=== PATIENT | male | born 1975 | race Two or more races ===

== ENCOUNTER → 2020-04-06 12:44 | Outpatient (BNVA) | payer BC, SELFPAY | PROVIDERS: PCP Internal Medicine; Visit Provider Orthopaedic Surgery ==

== ENCOUNTER 2020-04-27 12:14 | Day surgery (SDC) | payer BC, SELFPAY ==
[2020-04-27 13:03] VITALS: BMI 31.8
[2020-04-27 13:04] VITALS: PULSE 89; TEMP 36.8; O2SAT 97
--- NOTE | 2020-04-27 13:59 | W.PM.OPN ---
Operative Note Operative Note Date of Service: 04/27/20 Narrative: Preop diagnosis: 1. Left Carpal tunnel syndrome Postop diagnosis: 1. Left Carpal tunnel syndrome Procedure: 1. Left Carpal tunnel release Surgeon: Jinny Yancey MD Anesthesia: local block using 1% lidocaine with epinephrine Findings: Thickened transverse carpal ligament. EBL: Less than 5 mL Specimens: None Complications: None Disposition: Brought to recovery room in stable condition Plan: Follow-up for 7-10 days for wound check and suture removal Indications: The patient is 45 years old, with left carpal tunnel syndrome that has been unresponsive to nonoperative management. The risks and benefits of operative treatment including but not limited to risk of damage to blood vessels, nerves, tendons, infection, persistent pain, persistent symptoms, or possible need for additional surgery were discussed with the patient and the patient wishes to proceed with surgery. Procedure: Once consent was obtained a local block was performed using a combination of 1% lidocaine with epinephrine. The patient was then brought back to the operating suite and placed on the operative table in supine position. A tourniquet was applied to the proximal aspect of the left upper extremity and the limb was prepped and draped in a standard surgical fashion. Once assured that we had a good block, a 1.5 cm longitudinal incision was made centered over the left carpal tunnel. The incision was made through the skin to the subcutaneous tissues using a #15 blade. Dissection was made down to the level of the transverse carpal ligament with care being taken to protect the palmar cutaneous nerve. Once the transverse carpal ligament was clearly visualized, a longitudinal incision was made in the transverse carpal ligament 1st using a #15 blade, then using tenotomy scissors under direct visualization. Care was taken to look for and protect the motor branch of the median nerve when seen in this area. Once satisfied with our carpal tunnel release the wound was copiously irrigated with normal saline and hemostasis was obtained with a brief period of local pressure. The skin edges were reapproximated with some 5.0 nylon suture material and a sterile dressing was applied. The patient appears to have tolerated the procedure well and with no complications. All digits were well vascularized at the conclusion of the case.
[2020-04-27 14:42] VITALS: BP 130/81; PULSE 69; RESP 16; TEMP 36.6; O2SAT 96
== END 2020-04-27 14:56 | disposition home or self-care (01) ==
PROVIDERS: PCP Internal Medicine; Visit Provider Orthopaedic Surgery
PROC: (CPT 64721; principal; 2020-04-27 13:30)
DX: G56.02 Carpal tunnel syndrome, left upper limb (principal); E66.9 Obesity, unspecified; I49.1 Atrial premature depolarization; Z68.31 Body mass index [BMI] 31.0-31.9, adult; Z91.040 Latex allergy status; Z87.891 Personal history of nicotine dependence
CPT/HCPCS: 64721

== ENCOUNTER → 2020-05-06 09:08 | Outpatient (BNVA) | payer BC, SELFPAY | PROVIDERS: PCP Internal Medicine; Visit Provider Orthopaedic Surgery ==

== ENCOUNTER 2020-05-28 11:11 | Day surgery (SDC) | payer BC, SELFPAY ==
[2020-05-27 09:43] VITALS: BMI 31.8
[2020-05-28 11:36] VITALS: BP 149/84; PULSE 79; RESP 18; TEMP 36.2; O2SAT 98
--- NOTE | 2020-05-28 12:56 | W.PM.OPN ---
Operative Note Operative Note Date of Service: 05/28/20 Narrative: Preop diagnosis: 1. Right Carpal tunnel syndrome Postop diagnosis: 1. Right Carpal tunnel syndrome Procedure: 1. Right Carpal tunnel release Surgeon: Jinny Yancey MD Anesthesia: local block using 1% lidocaine with epinephrine Findings: Thickened transverse carpal ligament. EBL: Less than 5 mL Specimens: None Complications: None Disposition: Brought to recovery room in stable condition Plan: Follow-up for 7-10 days for wound check and suture removal Indications: The patient is 45 years old, with right carpal tunnel syndrome that has been unresponsive to nonoperative management. The risks and benefits of operative treatment including but not limited to risk of damage to blood vessels, nerves, tendons, infection, persistent pain, persistent symptoms, or possible need for additional surgery were discussed with the patient and the patient wishes to proceed with surgery. Procedure: Once consent was obtained a local block was performed using a combination of 1% lidocaine with epinephrine. The patient was then brought back to the operating suite and placed on the operative table in supine position. A tourniquet was applied to the proximal aspect of the right upper extremity and the limb was prepped and draped in a standard surgical fashion. Once assured that we had a good block, a 1.5 cm longitudinal incision was made centered over the right carpal tunnel. The incision was made through the skin to the subcutaneous tissues using a #15 blade. Dissection was made down to the level of the transverse carpal ligament with care being taken to protect the palmar cutaneous nerve. Once the transverse carpal ligament was clearly visualized, a longitudinal incision was made in the transverse carpal ligament 1st using a #15 blade, then using tenotomy scissors under direct visualization. Care was taken to look for and protect the motor branch of the median nerve when seen in this area. Once satisfied with our carpal tunnel release the wound was copiously irrigated with normal saline and hemostasis was obtained with a brief period of local pressure. The skin edges were reapproximated with some 5.0 nylon suture material and a sterile dressing was applied. The patient appears to have tolerated the procedure well and with no complications. All digits were well vascularized at the conclusion of the case.
--- NOTE | 2020-05-28 14:16 | MHC.SHP ---
Pre-Procedural Eval Section B Chief Complaint: carpal tunnel Allergies: Allergies Allergy/AdvReac Type Severity Reaction Status Date / Time latex [LATEX] Allergy Unknown RASH Verified 05/06/20 09:28 Plan I have reviewed the history and physical and performed a pertinent physical examination on my patient. No changes have occurred unless specified.
[2020-05-28 14:39] VITALS: BP 122/77; PULSE 73; RESP 17; TEMP 36.2; O2SAT 98
== END 2020-05-28 14:50 ==
LOC: HO.SSS 11:12
PROVIDERS: PCP Internal Medicine; Visit Provider Orthopaedic Surgery
PROC: (CPT 64721; principal; 2020-05-28 12:50)
DX: G56.01 Carpal tunnel syndrome, right upper limb (principal); E66.9 Obesity, unspecified; Z68.31 Body mass index [BMI] 31.0-31.9, adult; Z91.040 Latex allergy status; Z87.891 Personal history of nicotine dependence
CPT/HCPCS: 64721

== ENCOUNTER → 2020-06-08 10:09 | Outpatient (BNVA) | payer BC, SELFPAY | PROVIDERS: PCP Internal Medicine; Visit Provider Orthopaedic Surgery ==

== ENCOUNTER → 2020-06-15 08:46 | Outpatient (BNVA) | payer BC, SELFPAY | PROVIDERS: PCP Internal Medicine; Visit Provider Orthopaedic Surgery ==

== ENCOUNTER 2021-06-24 06:48 | Outpatient (REF) | payer BC, SELFPAY ==
[2021-06-24 07:05] LABS: MANUAL DIFF FLAG NO
[2021-06-24 07:40] LABS: Basophils Absolute Auto 0.1 X10*3/uL (0.0-0.2); Basophils Percent Auto 1.1 % (0-2); Eosinophils Absolute Auto 0.3 X10*3/uL (0.0-0.4); Eosinophils Percent Auto 4.2 % (0-4); Hematocrit 42.4 % (42.0-52.0); Hemoglobin 14.1 g/dl (14.0-18.0); Imm Gran Abs Auto 0.03 X10*3/uL (0.00-0.03); Imm Gran Pct Auto 0.5 % (0.0-0.4); Lymphocytes Absolute Auto 1.8 X10*3/uL (1.2-4.9); Lymphocytes Percent Auto 29.2 % (20-40); Mean Corpuscular HGB Conc 33.3 g/dl (31.0-36.0); Mean Corpuscular Hemoglobin 29.1 pg (27.0-33.0); Mean Corpuscular Volume 87.4 fL (80.0-98.0); Mean Platelet Volume 10.6 fL (9.4-12.4); Monocytes Absolute Auto 0.4 X10*3/uL (0.1-1.2); Neutrophils Absolute Auto 3.6 x10*3/uL (2.0-8.3); Platelet Count 248 X10*3/uL (160-400); Red Blood Count 4.85 X10*6/uL (4.60-5.80); Red Cell Distribution Width 12.8 % (11.0-16.0); White Blood Count 6.2 X10*3/uL (4.8-10.8)
[2021-06-24 07:49] LABS: Appearance Urine CLEAR; Color Urine YELLOW; Glucose Urine UA NEG (NEG); Leukocyte Esterase Urine NEG (NEG); Nitrite Urine NEG (NEG); Specific Gravity - Urine 1.025 (1.005-1.025); Urine Blood NEG (NEG); Urine Ketones NEG (NEG); Urine Protein NEG (NEG-TRACE)
[2021-06-24 07:58] LABS: Troponin-I High Sensitivity < 3.5 ng/L (<3.5-35.0)
[2021-06-24 08:03] LABS: Alanine Aminotransferase 39 U/L (0-40); Albumin Level 4.4 g/dL (3.5-5.0); Alkaline Phosphatase 62 U/L (39-117); Anion Gap 10 (12-20); Aspartate Amino Transferase 21 U/L (5-37); Bilirubin Total 0.2 mg/dL (0.0-1.0); Blood Urea Nitrogen 9 mg/dL (9-16); Calcium 9.5 mg/dL (8.4-10.2); Carbon Dioxide 29 mmol/L (22-29); Chloride 102 mmol/L (96-108); Cholesterol 219 mg/dL; Estimated Glomerular Filt Rate > 60; Glucose Fasting 92 mg/dL (60-99); HDL Cholesterol 28 mg/dL; LDL Cholesterol Calculated 124 mg/dl; Potassium 4.1 mmol/L (3.3-5.1); Sodium 137 mmol/L (135-145); Total Protein 7.5 g/dL (6.5-8.0); Triglycerides 338 mg/dL
[2021-06-24 08:25] LABS: TSH reflex Free T4 3.16 uIU/mL (0.32-4.0)
[2021-06-24 08:52] LABS: Erythrocyte Sedimentation Rate 10 MM/HR (0-15)
== END 2021-06-24 06:49 | disposition home or self-care (01) ==
LOC: HO.LAB 06:48
PROVIDERS: PCP Internal Medicine; Visit Provider Internal Medicine
DX: Z00.00 Encounter for general adult medical examination without abnormal findings (principal); I10 Essential (primary) hypertension; E78.00 Pure hypercholesterolemia, unspecified; E55.9 Vitamin D deficiency, unspecified; R07.9 Chest pain, unspecified; G43.909 Migraine, unspecified, not intractable, without status migrainosus
CPT/HCPCS: 36415; 80053; 80061; 81003; 82306; 84443; 84484; 85025; 85652

== ENCOUNTER 2022-04-25 06:45 | Outpatient (REF) | payer BC, SELFPAY ==
[2022-04-25 08:23] LABS: Alanine Aminotransferase 56 U/L (0-40); Albumin Level 4.3 g/dL (3.5-5.0); Alkaline Phosphatase 76 U/L (39-117); Anion Gap 13 (12-20); Aspartate Amino Transferase 32 U/L (5-37); Bilirubin Total 0.3 mg/dL (0.0-1.0); Blood Urea Nitrogen 15 mg/dL (9-16); Calcium 9.5 mg/dL (8.4-10.2); Carbon Dioxide 24 mmol/L (22-29); Chloride 106 mmol/L (96-108); Cholesterol 230 mg/dL; Estimated Glomerular Filt Rate > 60; Glucose Fasting 88 mg/dL (60-99); HDL Cholesterol 25 mg/dL; Potassium 4.2 mmol/L (3.3-5.1); Sodium 139 mmol/L (135-145); Total Protein 7.3 g/dL (6.5-8.0); Triglycerides 444 mg/dL
[2022-04-25 08:41] LABS: Vitamin D 25-OH Total 19.4 ng/mL (>30)
== END 2022-04-25 06:46 | disposition home or self-care (01) ==
LOC: HO.LAB 06:45
PROVIDERS: PCP Internal Medicine; Visit Provider Internal Medicine
DX: E78.00 Pure hypercholesterolemia, unspecified (principal); E55.9 Vitamin D deficiency, unspecified
CPT/HCPCS: 36415; 80053; 80061; 82306

== ENCOUNTER 2022-08-30 07:30 | Outpatient (REF) | payer BC, SELFPAY ==
[2022-08-30 07:41] LABS: MANUAL DIFF FLAG NO
[2022-08-30 08:05] LABS: Basophils Percent Auto 0.8 % (0-2); Eosinophils Absolute Auto 0.2 X10*3/uL (0.0-0.4); Eosinophils Percent Auto 5.1 % (0-4); Hematocrit 41.1 % (42.0-52.0); Hemoglobin 13.9 g/dl (14.0-18.0); Imm Gran Abs Auto 0.01 X10*3/uL (0.00-0.03); Imm Gran Pct Auto 0.2 % (0.0-0.4); Lymphocytes Absolute Auto 1.5 X10*3/uL (1.2-4.9); Lymphocytes Percent Auto 30.8 % (20-40); Mean Corpuscular HGB Conc 33.8 g/dl (31.0-36.0); Mean Corpuscular Hemoglobin 29.8 pg (27.0-33.0); Mean Platelet Volume 10.2 fL (9.4-12.4); Monocytes Absolute Auto 0.4 X10*3/uL (0.1-1.2); Monocytes Percent Auto 7.4 % (2-11); Neutrophils Absolute Auto 2.6 x10*3/uL (2.0-8.3); Neutrophils Percent Auto 55.7 % (45-73); Platelet Count 260 X10*3/uL (160-400); Red Blood Count 4.67 X10*6/uL (4.60-5.80); Red Cell Distribution Width 12.6 % (11.0-16.0); White Blood Count 4.7 X10*3/uL (4.8-10.8)
[2022-08-30 08:08] LABS: Appearance Urine Clear; Color Urine Yellow; Glucose Urine UA Negative (Negative); Leukocyte Esterase Urine Negative (Negative); Nitrite Urine Negative (Negative); PH 5.5 (5.0-9.0); Urine Blood Negative (Negative); Urine Ketones Negative (Negative); Urine Protein Negative (Neg-Trace)
[2022-08-30 08:59] LABS: Alanine Aminotransferase 41 U/L (0-40); Albumin Level 4.5 g/dL (3.5-5.0); Alkaline Phosphatase 42 U/L (39-117); Anion Gap 12 (12-20); Aspartate Amino Transferase 24 U/L (5-37); Bilirubin Total 0.5 mg/dL (0.0-1.0); Blood Urea Nitrogen 12 mg/dL (9-16); Calcium 9.6 mg/dL (8.4-10.2); Carbon Dioxide 27 mmol/L (22-29); Chloride 106 mmol/L (96-108); Cholesterol 194 mg/dL; Estimated Glomerular Filt Rate > 60; Glucose Fasting 96 mg/dL (60-99); HDL Cholesterol 29 mg/dL; LDL Cholesterol Calculated 128 mg/dl; Potassium 3.9 mmol/L (3.3-5.1); Sodium 141 mmol/L (135-145); Total Protein 7.3 g/dL (6.5-8.0); Triglycerides 185 mg/dL
[2022-08-30 09:14] LABS: TSH reflex Free T4 4.18 uIU/mL (0.32-4.0); Vitamin D 25-OH Total 36.6 ng/mL (>30)
[2022-08-30 11:44] LABS: Free T4 (Free Thyroxine) 1.08 ng/dL (0.71-1.85)
[2022-09-04 15:17] LABS: Testosterone, Total 379 ng/dL (250-1100)
== END 2022-08-30 07:31 | disposition home or self-care (01) ==
LOC: HO.LAB 07:30
PROVIDERS: PCP Internal Medicine; Visit Provider Internal Medicine
DX: N52.9 Male erectile dysfunction, unspecified (principal); E78.00 Pure hypercholesterolemia, unspecified; E55.9 Vitamin D deficiency, unspecified; G43.909 Migraine, unspecified, not intractable, without status migrainosus; R30.0 Dysuria
CPT/HCPCS: 36415; 80053; 80061; 81003; 82306; 84403; 84439; 84443; 85025

== ENCOUNTER 2022-11-02 12:35 | Outpatient (AMB) | payer BC, SELFPAY ==
--- NOTE | 2022-11-02 12:40 | MHC.PC.OV ---
Intake Visit Reasons: EST/right leg pain Allergies latex [LATEX] Allergy (Unknown, Verified 09/07/22 10:12) RASH topiramate Adverse Reaction (Intermediate, Verified 09/07/22 10:12) increased neck pain; ED Tobacco use date assessed: 09/07/22 PFSH Medical History Carpal tunnel syndrome on both sides Erectile dysfunction Migraine Mixed hyperlipidemia Obesity (BMI 30-39.9) PAC (premature atrial contraction) Smoker Vitamin D deficiency Surgical History History of appendectomy History of carpal tunnel surgery History of orchiectomy, unilateral Family History Father Hypertension Mother Hypertension Diabetes Social History Housing: Apartment Alcohol intake: current Alcohol intake frequency: holidays/special occasions only Patient Tobacco Use Status: Current everyday Tobacco user Tobacco use type: Cigarette e-Cigarette/Vaping Use: Currently Using Second Hand Smoke Exposure: Yes Advance Directives Date on File: 05/28/20 service: No Current occupational status: employed 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 Asim Amador, Katelyn Aguirre, Maxim Thorne and colleagues, with an educational samantha from [employer]. Physical exam (Primary Care) Tobacco/Smoking Status: Tobacco use Status Tobacco use date assessed 09/07/22 11/02/22 12:41 Patient Tobacco Use Status Current everyday Tobacco 11/02/22 12:41 Tobacco use type Cigarette 11/02/22 12:41 e-Cigarette/Vaping Use Currently Using 11/02/22 12:41 Thrive Assessment: Date of Thrive Assessment Date Thrive assessed 09/07/22 11/02/22 12:41 Coding Diagnoses
[2022-11-02 12:43] VITALS: BP 112/60; PULSE 84; TEMP 36.6; O2SAT 97
--- NOTE | 2022-11-02 12:43 | AM.OFFWIN_ITS ---
Intake Vital Signs 11/02/22 12:43 Height 5 ft 7 in Weight 20 lb BMI 3.1 BP 112/60 Blood Pressure Location Rt brachial Position Sitting Pulse 84 Pulse Source Pulse Oximeter Temp 98 F Temp Source Temporal Artery Scan Pulse Oximetry (%) 97 Oxygen Delivery Method Room Air Intake Visit Reasons: EST/right leg pain Intake Note: Pt is here c/o left leg pain. Pt states he was pushing a vehicle when he felt like he pulled a muscle. Patient Tobacco Use Status: Current everyday Tobacco user Allergies latex [LATEX] Allergy (Unknown, Verified 11/02/22 13:08) RASH topiramate Adverse Reaction (Intermediate, Verified 11/02/22 13:08) increased neck pain; ED HPI EST/right leg pain HPI Details 47-year-old male presents to the office for a sick visit. While pushing a car today patient felt something pop at the back of his left leg. He is having a lot of pain over the left calf muscle. PFSH Medical History Carpal tunnel syndrome on both sides Erectile dysfunction Migraine Mixed hyperlipidemia Obesity (BMI 30-39.9) PAC (premature atrial contraction) Smoker Vitamin D deficiency Surgical History History of appendectomy History of carpal tunnel surgery History of orchiectomy, unilateral Family History Father Hypertension Mother Hypertension Diabetes Social History Housing: Apartment Alcohol intake: current Alcohol intake frequency: holidays/special occasions only Patient Tobacco Use Status: Current everyday Tobacco user Tobacco use type: Cigarette e-Cigarette/Vaping Use: Currently Using Second Hand Smoke Exposure: Yes Advance Directives Date on File: 05/28/20 service: No Current occupational status: employed 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 Tender to touch. Unable to bear weight on the left leg. And able to stand on his toes or heel in the left leg. Assessment & Plan Assessment & Plan (1) Contusion of left leg: Code(s): S80.12XA - Contusion of left lower leg, initial encounter Plan: Patient was advised rest, keep the leg elevated. Meloxicam called in for pain. Crutches provided. If symptoms persist, diagnostic testing to rule out tendon injury. Coding Level of Care Code Est Pt Level 4 (60099) Diagnoses Contusion of left leg S80.12XA
== END 2022-11-02 13:15 | disposition home or self-care (01) ==
PROVIDERS: PCP Internal Medicine; Visit Provider Internal Medicine
DX: S80.12XA Contusion of left lower leg, initial encounter (principal)
CPT/HCPCS: 99214

== ENCOUNTER 2022-11-30 08:47 | Outpatient (REF) | payer BC, SELFPAY ==
[2022-11-30 09:10] LABS: MANUAL DIFF FLAG NO
[2022-11-30 10:08] LABS: Basophils Absolute Auto 0.1 X10*3/uL (0.0-0.2); Basophils Percent Auto 1.2 % (0-2); Eosinophils Absolute Auto 0.2 X10*3/uL (0.0-0.4); Hematocrit 42.1 % (42.0-52.0); Hemoglobin 14.2 g/dl (14.0-18.0); Imm Gran Abs Auto 0.02 X10*3/uL (0.00-0.03); Imm Gran Pct Auto 0.4 % (0.0-0.4); Lymphocytes Absolute Auto 1.3 X10*3/uL (1.2-4.9); Lymphocytes Percent Auto 25.5 % (20-40); Mean Corpuscular HGB Conc 33.7 g/dl (31.0-36.0); Mean Corpuscular Hemoglobin 29.3 pg (27.0-33.0); Mean Platelet Volume 10.9 fL (9.4-12.4); Monocytes Absolute Auto 0.3 X10*3/uL (0.1-1.2); Monocytes Percent Auto 6.7 % (2-11); Neutrophils Absolute Auto 3.1 x10*3/uL (2.0-8.3); Neutrophils Percent Auto 62.2 % (45-73); Platelet Count 280 X10*3/uL (160-400); Red Blood Count 4.84 X10*6/uL (4.60-5.80); Red Cell Distribution Width 12.4 % (11.0-16.0); White Blood Count 4.9 X10*3/uL (4.8-10.8)
[2022-11-30 10:33] LABS: Appearance Urine Clear; Color Urine Yellow; Glucose Urine UA Negative (Negative); Leukocyte Esterase Urine Negative (Negative); Nitrite Urine Negative (Negative); Urine Blood Negative (Negative); Urine Ketones Negative (Negative); Urine Protein Negative (Neg-Trace)
[2022-11-30 10:43] LABS: Alanine Aminotransferase 37 U/L (0-40); Albumin Level 4.5 g/dL (3.5-5.0); Alkaline Phosphatase 49 U/L (39-117); Anion Gap 10 (12-20); Aspartate Amino Transferase 22 U/L (5-37); Bilirubin Total 0.3 mg/dL (0.0-1.0); Blood Urea Nitrogen 11 mg/dL (9-16); Calcium 9.6 mg/dL (8.4-10.2); Carbon Dioxide 28 mmol/L (22-29); Chloride 105 mmol/L (96-108); Cholesterol 194 mg/dL (<200); Estimated Glomerular Filt Rate > 60; Glucose Fasting 94 mg/dL (60-99); HDL Cholesterol 32 mg/dL (>40); LDL Cholesterol Calculated 137 mg/dL (<100); Potassium 4.3 mmol/L (3.3-5.1); Sodium 139 mmol/L (135-145); Total Protein 7.6 g/dL (6.5-8.0); Triglycerides 126 mg/dL (<150)
[2022-11-30 10:59] LABS: Vitamin D 25-OH Total 57.3 ng/mL (>30)
== END 2022-11-30 08:48 | disposition home or self-care (01) ==
LOC: HO.LAB 08:47
PROVIDERS: PCP Internal Medicine; Visit Provider Internal Medicine
DX: I10 Essential (primary) hypertension (principal); E78.00 Pure hypercholesterolemia, unspecified; R30.0 Dysuria; E55.9 Vitamin D deficiency, unspecified
CPT/HCPCS: 36415; 80053; 80061; 81003; 82306; 84443; 85025

== ENCOUNTER 2023-01-11 09:23 | Outpatient (AMB) | payer BC, SELFPAY ==
[2023-01-11 09:26] VITALS: BP 110/78; PULSE 84; O2SAT 97; BMI 31.8
--- NOTE | 2023-01-11 09:26 | MHC.PC.OV ---
Vital Signs 01/11/23 09:26 Height 5 ft 7 in Weight 203 lb 6 oz BMI 31.8 BP 110/78 Blood Pressure Location Lt brachial Position Sitting Pulse 84 Pulse Source Pulse Oximeter Pulse Oximetry (%) 97 Oxygen Delivery Method Room Air Intake Visit Reasons: [facility] f/u Parachute Folder Required: No Accompanied by: Self / Same As Patient Allergies latex [LATEX] Allergy (Unknown, Verified 01/11/23 09:41) RASH topiramate Adverse Reaction (Intermediate, Verified 01/11/23 09:41) increased neck pain; ED Medication List - Last Reconciled 01/11/23 by Jimmy Serrano MD arm brace (Wrist Brace Large) As directed - LEFT WRIST arm brace (Wrist Brace Large) As directed - RIGHT WRIST [id number] 50-300-40 mg (Fioricet) 1 cap PO Q8H PRN 30 days cholecalciferol (vitamin D3) 25 mcg PO DAILY fenofibrate 160 mg PO DAILY 90 days ibuprofen (Advil) 200 mg PO Q6H PRN loratadine 10 mg PO DAILY PRN meloxicam 15 mg PO DAILY nicotine 1 patch transdermal DAILY 7 days nicotine 1 patch transdermal Q24H 28 days nicotine 1 patch transdermal DAILY 7 days sildenafil 50 mg PO DAILY PRN 30 days sumatriptan succinate 50 mg PO Q2-4H PRN Tobacco use date assessed: 01/11/23 Dental Screening Dental Screen Date: 01/11/23 Did you have a dental visit in the last 12 months?: Yes Did you have a dental problem in the last 6 months where you did not have access to dental care?: No Was dental information given to patient?: Patient has dentist HPI [facility] f/u HPI Details Patient comes in today for his follow up visit States that he feels okay He denies any headaches or dizziness - states that his migraine headaches have been well-controlled lately Has been experiencing some on and off transient pain over the right side of his neck just lateral to the cervical spine lately Does not recall any recent injury or trauma to his neck Denies any chest pains, no SOB No nausea/vomiting, no abdominal pain No change in bowel habits noted Had his follow up labs done a few weeks ago - to discuss his results Would also like to get his flu shot today [facility] Medical History Smoker Erectile dysfunction Vitamin D deficiency Mixed hyperlipidemia Obesity (BMI 30-39.9) PAC (premature atrial contraction) Migraine Carpal tunnel syndrome on both sides Surgical History History of carpal tunnel surgery History of orchiectomy, unilateral History of appendectomy Family History Father Hypertension Mother Hypertension Diabetes Social History Housing: Apartment Alcohol intake: current Alcohol intake frequency: holidays/special occasions only Patient Tobacco Use Status: Current everyday Tobacco user Tobacco use type: Cigarette e-Cigarette/Vaping Use: Currently Using Second Hand Smoke Exposure: Yes Advance Directives Date on File: 05/28/20 service: No Current occupational status: employed 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 1. Little interest or pleasure in doing things: not at all 2. Feeling down, depressed, or hopeless: not at all 3. Trouble falling or staying asleep, or sleeping too much: not at all 4. Feeling tired or having little energy: not at all 5. Poor appetite or overeating: not at all 6. Feeling bad about yourself - or that you are a failure or have let yourself or your family down: not at all 7. Trouble concentrating on things, such as reading the newspaper or watching television: not at all 8. Moving or speaking so slowly that other people could have noticed. Or the opposite - being so fidgety or restless that you have been moving around a lot more than usual: not at all 9. Thoughts that you would be better off or of hurting yourself in some way: not at all Total score: 0 Depression Screening Interpretation: Negative Depression Screening Done: Yes 38563 - PHQ-9 Billing: Yes Source: Developed by Drs. Asim Amador, Katelyn Aguirre, Maxim Thorne and colleagues, with an educational samantha from [employer]. Thrive Questionnaire Date Thrive assessed: 01/11/23 I am a: Patient What is your living situation today?: I have a steady place to live Within the past 12 months, did the food you bought not last and you didn't have the money to get more?: Never true Within the past 12 months, did you worry whether your food would run out before you got money to buy more?: Never true Do you have trouble paying for medicines?: No Do you have trouble getting transportation to medical appointments?: No Do you have trouble paying your heating and electricity bill?: No Do you have trouble taking care of your child, family member or friend?: No Do you have trouble with day-to-day activities such as bathing, preparing meals, shopping, managing finances, etc.?: No Are you currently unemployed and looking for a job?: No Are you interested in more education?: No Please select the resources that you would like help with: None Currently or been in a relationship where the following occur: no concerns reported AUDIT C Alcohol Use Questionnaire (AUDIT-C) 1. How often do you have a drink containing alcohol?: Never 3. How often do you have six or more drinks on one occasion?: Never Total Score: 0 Score Reviewed/Action Taken: Yes HEIDY-7 AMB Questionnaire HEIDY-7 Date HEIDY - 7 assessed: 01/11/23 Feeling nervous, anxious, or on edge: 0 = Not at all Not being able to stop or control worryin = Not at all Worrying too much about different things: 0 = Not at all Trouble relaxin = Not at all Being so restless that it is hard to sit still: 0 = Not at all Becoming easily annoyed or irritable: 0 = Not at all Feeling afraid as if something awful might happen: 0 = Not at all Total HEIDY-7 score (0-4 normal; 5-9 mild; 10-14 moderate; 15-21 severe): 0 Source: Developed by Drs. Asim Amador, Katelyn Aguirre, Maxim Thorne and colleagues, with an educational samantha from [employer]. Review of Systems Const Denies chills, Denies fatigue, Denies fever(s) and Denies headache(s) ENT Denies dysphagia, Denies dizziness, Denies otalgia, Denies headache(s), Reports neck pain (on and off transient sharp pain over the right paraspinal area ), Denies odynophagia and Denies sore throat Card Denies chest pain, Denies palpitations and Denies dyspnea Resp Denies cough and Denies dyspnea GI Denies abdominal pain, Denies constipation, Denies dysphagia, Denies heartburn, Denies diarrhea, Denies nausea, Denies odynophagia and Denies vomiting Reports erectile dysfunction, Denies dysuria and Denies urinary frequency Musc Reports back pain (over the lower back - chronic) and Reports neck pain (on and off transient sharp pain over the right paraspinal area ) Neuro Denies dizziness and Denies headache(s) Endo Denies fatigue and Denies palpitations Physical exam (Primary Care) Vital Signs: Last Vital Signs Pulse 84 01/11/23 09:26 BP 110/78 01/11/23 09:26 Pulse Ox 97 01/11/23 09:26 Oxygen Delivery Method Room Air 01/11/23 09:26 BMI result Body Mass Index 31.8 Tobacco/Smoking Status: Tobacco use Status Tobacco use date assessed 01/11/23 01/11/23 09:33 Patient Tobacco Use Status Current everyday Tobacco 01/11/23 09:33 Tobacco use type Cigarette 01/11/23 09:33 e-Cigarette/Vaping Use Currently Using 01/11/23 09:33 PHQ-9: PHQ-9 Score PHQ-9: Total score 0 01/11/23 09:33 Depression Screening Interpretation: Negative Thrive Assessment: Date of Thrive Assessment Date Thrive assessed 01/11/23 01/11/23 09:33 Currently or been in a relationship where the following occur: no concerns reported Const General: no acute distress and alert HENMT Ears: TM's normal bilaterally and EAC's normal Throat: Yes posterior oropharynx normal and Yes tonsils normal (no TP congestion) Neck Neck: Yes no lymphadenopathy and Yes supple Thyroid: Thyroid normal Resp Auscultation: clear to auscultation bilaterally, no rales and no wheezes Cardio Rate: regular rate Rhythm: regular rhythm Heart sounds: no murmurs GI Palpation (GI): Soft to palpation and nontender Auscultation: normal bowel sounds Back/Spine/Pelvis Cervical Spine: No cervical muscular tenderness and No Cervical spine tenderness Thoracic/Lumbar Spine: lumbar spinal tenderness Skin Rashes: no rashes Extrem General: Yes no clubbing, cyanosis or edema Office Procedures Flu Questionnaire Does the patient have a severe egg allergy?: No Does the patient have severe life threatening allergies?: No Does the patient have a fever or illness today?: No Has the patient ever had Guillain-[place] Syndrome?: No Has the patient ever had any past reaction to a flu shot?: No Immunizations flu vacc [id number] 6mos up(PF) 60 mcg(15 mcgx4)/0.5 mL IM syringe Performing Provider: Jimmy Serrano MD [facility] Administered by: Armando Montelongo on 01/11/23 09:41 Dose Route Admin Location Dispensed Lot Number Expiration Date NDC Risk Prevention Engineer 0.5 mL IM Left Deltoid 0.5 mL [id number] 09/03/23 56204-486-30 Gem VIS Given Date VIS Provided VIS Publication Date 01/11/23 Single Vaccine 20 Eligibility Eligibility Date Funding Source Not [facility] Eligible 01/11/23 Private Results Reviewed Results Reviewed: Laboratory Tests 11/30/22 11/30/22 09:09 09:11 WBC 4.9 Hgb 14.2 Hct 42.1 Plt Count 280 Sodium 139 Potassium 4.3 Creatinine 1.11 Estimated GFR > 60 Fasting Glucose 94 Calcium 9.6 AST 22 ALT 37 Triglycerides 126 Cholesterol 194 LDL Cholesterol, Calc 137 H HDL Cholesterol 32 L 25-OH Vitamin D Total 57.3 TSH 1.60 Ur Specific [place] 1.020 Urine Protein Negative Urine Glucose (UA) Negative Urine Blood Negative Assessment and Plan Assessment & Plan (1) Mixed hyperlipidemia: Code(s): E78.2 - Mixed hyperlipidemia Plan: Results of his labs done a few weeks ago reviewed and discussed with patient - advised that his triglyceride level has improved significantly from previous; his LDL cholesterol has increased slightly from previous to 137 mg/dl Reinforced low cholesterol diet Continue Fenofibrate 160 mg QD for now but advised that if his LDL cholesterol does not improve or continues to go up over the next few months, we will need to consider starting him additionally on statins to help control his LDL cholesterol level Will recheck his labs and fasting lipids in 4 months for follow up (2) Migraine: Code(s): G43.909 - Migraine, unspecified, not intractable, without status migrainosus Qualifiers: Migraine type: unspecified Status migrainosus presence: without status migrainosus Intractability: not intractable Qualified Code(s): G43.909 - Migraine, unspecified, not intractable, without status migrainosus Plan: Stable lately Reinforced avoidance of migraine triggers Continue Fioricet PRN and Sumatriptan 50 mg PRN; Topiramate was increased to 50 mg Q HS by neurology previously but he stopped the Rx as he felt that it was causing him to experience increased pain over the back of his neck as well as symptoms of ED Follow up with neurology (Dr. Alonso) as scheduled (3) Vitamin D deficiency: Code(s): E55.9 - Vitamin D deficiency, unspecified Plan: Continue Vitamin D3 1000 units QD (4) Erectile dysfunction: Code(s): N52.9 - Male erectile dysfunction, unspecified Qualifiers: Erectile dysfunction type: unspecified Qualified Code(s): N52.9 - Male erectile dysfunction, unspecified Plan: Continue Sildenafil 50 mg PRN Is reminded to monitor his BP regularly and advised NOT to take his ED Rx if his BP is high Serum testosterone level checked a few months ago came out normal (5) Neck pain on right side: Code(s): M54.2 - Cervicalgia Plan: Discussed that this is likely due to cervical muscular strain or could be referred pain from his cervical spine if he has some cervical spine pathology or changes going on at present Will send him for cervical spine x-rays for further evaluation (6) Carpal tunnel syndrome on both sides: Comment: S/P carpal tunnel release (surgery) of the left wrist on 04/27/20 and of the right wrist on 05/28/20 with significant improvement of symptoms Code(s): G56.03 - Carpal tunnel syndrome, bilateral upper limbs Plan: Follow up with orthopedics as scheduled or as needed (7) Smoker: Code(s): F17.200 - Nicotine dependence, unspecified, uncomplicated Plan: Counseled again on smoking cessation States that he currently uses vapes more than actual cigarettes and still does both daily; notes that his vapes contain at least 6% nicotine Continue Nicotine patches as needed to help him quit smoking (8) Obesity (BMI 30-39.9): Code(s): E66.9 - Obesity, unspecified Plan: Reinforced diet/exercise as tolerated/lose weight Plan Follow up in 4 months Orders: Orders Influenza [id number] Immunization Today Z23 - Encounter for immunization Comprehensive [place]. Panel Fast 4 Months E78.00 - Pure hypercholesterolemia, unspecified Lipid Panel 4 Months E78.00 - Pure hypercholesterolemia, unspecified XR cervical spine 3V Today M54.2 - Cervicalgia Coding Level of Care Code Est Pt Level 4 (73294) Diagnoses Mixed hyperlipidemia E78.2 Migraine without status migrainosus, not intractable, unspecified migraine type G43.909 Migraine type: unspecified Status migrainosus presence: without status migrainosus Intractability: not intractable Vitamin D deficiency E55.9 Erectile dysfunction, unspecified erectile dysfunction type N52.9 Erectile dysfunction type: unspecified Neck pain on right side M54.2 Carpal tunnel syndrome on both sides G56.03 Smoker F17.200 Obesity (BMI 30-39.9) E66.9
== END 2023-01-11 09:51 | disposition home or self-care (01) ==
PROVIDERS: PCP Internal Medicine; Visit Provider Internal Medicine
DX: E78.2 Mixed hyperlipidemia (principal); G43.909 Migraine, unspecified, not intractable, without status migrainosus; E55.9 Vitamin D deficiency, unspecified; N52.9 Male erectile dysfunction, unspecified; M54.2 Cervicalgia; G56.03 Carpal tunnel syndrome, bilateral upper limbs; F17.200 Nicotine dependence, unspecified, uncomplicated; E66.9 Obesity, unspecified; Z23 Encounter for immunization
CPT/HCPCS: 90471; 90686; 99214

== ENCOUNTER 2023-04-28 07:30 | Outpatient (REF) | payer BC, SELFPAY ==
--- NOTE | ~2023-04-28 | XR_ITS ---
EXAMINATION: XR CERVICAL SPINE CLINICAL INFORMATION: Neck pain. COMPARISON: None available. TECHNIQUE: 3 views of the cervical spine were obtained. FINDINGS: Straightening of the normal cervical lordosis. C7 partially obscured by overlying soft tissues, limiting evaluation. Mild multilevel cervical spondylosis. XR/XR cervical spine 3V IMPRESSION: Mild multilevel cervical spondylosis.
[2023-04-28 08:48] LABS: Alanine Aminotransferase 37 U/L (0-40); Albumin Level 4.3 g/dL (3.5-5.0); Alkaline Phosphatase 51 U/L (39-117); Anion Gap 12 (12-20); Aspartate Amino Transferase 23 U/L (5-37); Bilirubin Total 0.2 mg/dL (0.0-1.0); Blood Urea Nitrogen 12 mg/dL (9-16); Calcium 9.1 mg/dL (8.4-10.2); Carbon Dioxide 26 mmol/L (22-29); Chloride 108 mmol/L (96-108); Cholesterol 196 mg/dL (<200); Estimated Glomerular Filt Rate > 60; Glucose Fasting 98 mg/dL (60-99); HDL Cholesterol 28 mg/dL (>40); LDL Cholesterol Calculated 136 mg/dL (<100); Potassium 3.9 mmol/L (3.3-5.1); Sodium 142 mmol/L (135-145); Total Protein 7.3 g/dL (6.5-8.0); Triglycerides 162 mg/dL (<150)
== END 2023-04-28 07:31 | disposition home or self-care (01) ==
LOC: HO.LAB 07:30
PROVIDERS: PCP Internal Medicine; Visit Provider Internal Medicine
DX: M54.2 Cervicalgia (principal); E78.00 Pure hypercholesterolemia, unspecified
CPT/HCPCS: 36415; 72040; 80053; 80061

== ENCOUNTER 2023-05-11 10:20 | Outpatient (AMB) | payer BC, SELFPAY ==
[2023-05-11 10:37] VITALS: BP 110/80; PULSE 90; O2SAT 97; BMI 32.7
--- NOTE | 2023-05-11 10:37 | A.OFFPC_ITS ---
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 Accompanied by: Self / Same As Patient Allergies latex [LATEX] Allergy (Unknown, Verified 05/11/23 10:38) RASH topiramate Adverse Reaction (Intermediate, Verified 05/11/23 10:38) increased neck pain; ED Tobacco use date assessed: 05/11/23 Dental Screening Dental Screen Date: 05/11/23 Did you have a dental visit in the last 12 months?: Yes Did you have a dental problem in the last 6 months where you did not have access to dental care?: No Was dental information given to patient?: Patient has dentist HPI hyperlipidemia, migraine, chronic low back pain HPI Details Patient comes in today for his follow up visit States that he continues to experience on and off headaches - (+) Hx of migraine He could not tolerate the Topiramate prescribed by Neurology for headache prophylaxis and states that he still gets migraine headaches least once to twice a week He denies any chest pains, no shortness of breath No nausea/ vomiting, no abdominal pain No change in bowel habits noted Had his follow-up labs done a couple of weeks ago - to discuss his results [facility] Medical History Smoker Erectile dysfunction Vitamin D deficiency Mixed hyperlipidemia Obesity (BMI 30-39.9) PAC (premature atrial contraction) Migraine Carpal tunnel syndrome on both sides Surgical History History of carpal tunnel surgery History of orchiectomy, unilateral History of appendectomy Family History Father Hypertension Mother Hypertension Diabetes Social History Housing: Apartment Alcohol intake: current Alcohol intake frequency: holidays/special occasions only Patient Tobacco Use Status: Current everyday Tobacco user Tobacco use type: Cigarette e-Cigarette/Vaping Use: Currently Using Second Hand Smoke Exposure: Yes Advance Directives Date on File: 05/28/20 service: No Current occupational status: employed 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 1. Little interest or pleasure in doing things: not at all 2. Feeling down, depressed, or hopeless: not at all 3. Trouble falling or staying asleep, or sleeping too much: not at all 4. Feeling tired or having little energy: not at all 5. Poor appetite or overeating: not at all 6. Feeling bad about yourself - or that you are a failure or have let yourself or your family down: not at all 7. Trouble concentrating on things, such as reading the newspaper or watching television: not at all 8. Moving or speaking so slowly that other people could have noticed. Or the opposite - being so fidgety or restless that you have been moving around a lot more than usual: not at all 9. Thoughts that you would be better off or of hurting yourself in some way: not at all Total score: 0 Depression Screening Interpretation: Negative Depression Screening Done: Yes 28911 - PHQ-9 Billing: Yes Source: Developed by Drs. Asim Amador, Katelyn Aguirre, Maxim Thorne and colleagues, with an educational samantha from [employer]. Thrive Questionnaire Date Thrive assessed: 05/11/23 I am a: Patient What is your living situation today?: I have a steady place to live Within the past 12 months, did the food you bought not last and you didn't have the money to get more?: Never true Within the past 12 months, did you worry whether your food would run out before you got money to buy more?: Never true Do you have trouble paying for medicines?: No Do you have trouble getting transportation to medical appointments?: No Do you have trouble paying your heating and electricity bill?: No Do you have trouble taking care of your child, family member or friend?: No Do you have trouble with day-to-day activities such as bathing, preparing meals, shopping, managing finances, etc.?: No Are you currently unemployed and looking for a job?: No Are you interested in more education?: No Please select the resources that you would like help with: None Currently or been in a relationship where the following occur: no concerns reported THRIVE Score: 0 AUDIT C Alcohol Use Questionnaire (AUDIT-C) 1. How often do you have a drink containing alcohol?: Never 3. How often do you have six or more drinks on one occasion?: Never Total Score: 0 Score Reviewed/Action Taken: Yes HEIDY-7 AMB Questionnaire HEIDY-7 Date HEIDY - 7 assessed: 05/11/23 Feeling nervous, anxious, or on edge: 0 = Not at all Not being able to stop or control worryin = Not at all Worrying too much about different things: 0 = Not at all Trouble relaxin = Not at all Being so restless that it is hard to sit still: 0 = Not at all Becoming easily annoyed or irritable: 0 = Not at all Feeling afraid as if something awful might happen: 0 = Not at all Total HEIDY-7 score (0-4 normal; 5-9 mild; 10-14 moderate; 15-21 severe): 0 Source: Developed by Drs. Asim Amador, Katelyn Aguirre, Maxim Thorne and colleagues, with an educational samantha from [employer]. Review of Systems Const Denies chills, Reports fatigue, Denies fever(s) and Reports headache(s) (on and off) ENT Denies dysphagia, Denies dizziness, Denies otalgia, Reports headache(s) (on and off), Reports neck pain (on and off, over the right paraspinal area ) and Denies sore throat Card Denies chest pain, Denies palpitations and Denies dyspnea Resp Denies cough and Denies dyspnea GI Denies abdominal pain, Denies constipation, Denies dysphagia, Denies heartburn, Denies diarrhea, Denies nausea and Denies vomiting Reports erectile dysfunction, Denies dysuria and Denies urinary frequency Musc Reports back pain (over the lower back - chronic) and Reports neck pain (on and off, over the right paraspinal area ) Skin/Breast Denies rash Neuro Denies dizziness and Reports headache(s) (on and off) Endo Reports fatigue and Denies palpitations Physical exam (Primary Care) Vital Signs: Last Vital Signs Pulse 90 05/11/23 10:37 BP 110/80 05/11/23 10:37 Pulse Ox 97 05/11/23 10:37 Oxygen Delivery Method Room Air 05/11/23 10:37 BMI result Body Mass Index 32.7 Tobacco/Smoking Status: Tobacco use Status Tobacco use date assessed 05/11/23 05/11/23 10:40 Patient Tobacco Use Status Current everyday Tobacco 05/11/23 10:40 Tobacco use type Cigarette 05/11/23 10:40 e-Cigarette/Vaping Use Currently Using 05/11/23 10:40 PHQ-9: PHQ-9 Score PHQ-9: Total score 0 05/11/23 11:23 Depression Screening Interpretation: Negative Thrive Assessment: Date of Thrive Assessment Date Thrive assessed 05/11/23 05/11/23 10:40 Currently or been in a relationship where the following occur: no concerns reported Const General: no acute distress and alert HENMT Ears: TM's normal bilaterally and EAC's normal Throat: Yes posterior oropharynx normal and Yes tonsils normal (no TP congestion) Neck Neck: Yes no lymphadenopathy and Yes supple Thyroid: Thyroid normal Resp Auscultation: clear to auscultation bilaterally, no rales and no wheezes Cardio Rate: regular rate Rhythm: regular rhythm Heart sounds: no murmurs GI Palpation (GI): Soft to palpation and nontender Auscultation: normal bowel sounds General: Yes no CVA tenderness Back/Spine/Pelvis Back: no CVA tenderness Cervical Spine: Cervical spine tenderness Thoracic/Lumbar Spine: lumbar spinal tenderness Skin Rashes: no rashes Extrem General: Yes no clubbing, cyanosis or edema Results Reviewed Results Reviewed: Laboratory Tests 04/28/23 07:46 Sodium 142 Potassium 3.9 Creatinine 1.10 Estimated GFR > 60 Fasting Glucose 98 Calcium 9.1 AST 23 ALT 37 Triglycerides 162 H Cholesterol 196 LDL Cholesterol, Calc 136 H HDL Cholesterol 28 L Assessment and Plan Assessment & Plan (1) Mixed hyperlipidemia: Code(s): E78.2 - Mixed hyperlipidemia Plan: Results of his labs done a few weeks ago reviewed and discussed with patient - advised that his triglyceride level has increased again from previous; his LDL cholesterol remains slightly elevated at 136 mg/dl Reinforced low cholesterol diet Continue Fenofibrate 160 mg QD Will start him additionally on Ezetimibe 10 mg QD Will recheck his labs and fasting lipids in 4 months for follow up (2) Migraine: Code(s): G43.909 - Migraine, unspecified, not intractable, without status migrainosus Qualifiers: Intractability: not intractable Migraine type: unspecified Status migrainosus presence: without status migrainosus Qualified Code(s): G43.909 - Migraine, unspecified, not intractable, without status migrainosus Plan: Stable lately Reinforced avoidance of migraine triggers Continue Fioricet PRN and Sumatriptan 50 mg PRN; Topiramate was increased to 50 mg Q HS by neurology previously but he stopped the Rx as he felt that it was causing him to experience increased pain over the back of his neck as well as symptoms of ED Will start him on a trial of Ubrelvy 50 mg PRN IF his insurance will cover the medication Follow up with neurology (Dr. Alonso) as scheduled (3) Vitamin D deficiency: Code(s): E55.9 - Vitamin D deficiency, unspecified Plan: Continue Vitamin D3 1000 units QD (4) Erectile dysfunction: Code(s): N52.9 - Male erectile dysfunction, unspecified Qualifiers: Erectile dysfunction type: unspecified Qualified Code(s): N52.9 - Male erectile dysfunction, unspecified Plan: Continue Sildenafil 50 mg PRN Is reminded to monitor his BP regularly and advised NOT to take his ED Rx if his BP is high Serum testosterone level checked last year came out normal (5) Cervical spondylosis: Code(s): M47.812 - Spondylosis without myelopathy or radiculopathy, cervical region Plan: Cervical spine x-rays done a couple of weeks ago in April 2023 revealed (+) mild multilevel cervical spondylosis Will refer him to physical therapy for further evaluation and management (6) Carpal tunnel syndrome on both sides: Comment: S/P carpal tunnel release (surgery) of the left wrist on 04/27/20 and of the right wrist on 05/28/20 with significant improvement of symptoms Code(s): G56.03 - Carpal tunnel syndrome, bilateral upper limbs Plan: Follow up with orthopedics as scheduled or as needed (7) Smoker: Code(s): F17.200 - Nicotine dependence, unspecified, uncomplicated Plan: Counseled again on smoking cessation States that he currently uses vapes more than actual cigarettes and still does both daily; notes that his vapes contain at least 6% nicotine Continue Nicotine patches as needed to help him quit smoking (8) Obesity (BMI 30-39.9): Code(s): E66.9 - Obesity, unspecified Plan: Reinforced diet/exercise as tolerated/lose weight Plan Follow up in 4 months Orders: Orders PT Evaluation and Treatment 05/11/23 M47.812 - Spondylosis without myelopathy or radiculopathy, cervical region Lipid Panel 4 Months E78.00 - Pure hypercholesterolemia, unspecified Complete Blood Count Auto Diff 4 Months D64.9 - Anemia, unspecified UA CC w/rflx Micro + Cult 4 Months R30.0 - Dysuria Vitamin D 25-OH Total 4 Months E55.9 - Vitamin D deficiency, unspecified Comprehensive [place]. Panel Fast 4 Months E78.00 - Pure hypercholesterolemia, unspecified TSH reflex Free T4 4 Months E78.00 - Pure hypercholesterolemia, unspecified Medications: New ezetimibe 10 mg PO DAILY 90 tabs 3RF 90 days Ubrelvy (ubrogepant) Take NEEDED for migraine headaches. May take a second dose after 2 hours if needed but no more than 2 tablets in 24 hours 50 mg PO ONCE PRN 30 tabs 3RF migraine headache 30 days NS Coding Level of Care Code Est Pt Level 4 (76407) Diagnoses Mixed hyperlipidemia E78.2 Migraine without status migrainosus, not intractable, unspecified migraine type G43.909 Intractability: not intractable Migraine type: unspecified Status migrainosus presence: without status migrainosus Vitamin D deficiency E55.9 Erectile dysfunction, unspecified erectile dysfunction type N52.9 Erectile dysfunction type: unspecified Cervical spondylosis M47.812 Carpal tunnel syndrome on both sides G56.03 Smoker F17.200 Obesity (BMI 30-39.9) E66.9
== END 2023-05-11 11:30 | disposition home or self-care (01) ==
PROVIDERS: PCP Internal Medicine; Visit Provider Internal Medicine
DX: E78.2 Mixed hyperlipidemia (principal); N52.9 Male erectile dysfunction, unspecified; E66.9 Obesity, unspecified; Z68.32 Body mass index [BMI] 32.0-32.9, adult; G43.909 Migraine, unspecified, not intractable, without status migrainosus; E55.9 Vitamin D deficiency, unspecified; M47.812 Spondylosis without myelopathy or radiculopathy, cervical region; G56.03 Carpal tunnel syndrome, bilateral upper limbs; F17.210 Nicotine dependence, cigarettes, uncomplicated
CPT/HCPCS: 99214

== ENCOUNTER 2023-07-18 10:00 | Outpatient (RCR) | payer BC, SELFPAY ==
--- NOTE | 2023-05-31 15:57 | MHC.PT.EP ---
[facility] [place] [facility] [place] [facility] [place] [facility] [address] William Aguilar [address] [phone] F: [phone] F: [phone] F: [phone] F: [phone] Physical Therapy Plan of Care Date of Evaluation: 05/31/23 Date of Surgery: Diagnosis: cervical spondylosis without myelopathy or radiculopathy (RS) Assessment: Patient is a pleasant 48 y.o. male who is referred to PT by Dr. Jimmy Serrano MD, with Dx of cervical spondylosis without myelopathy or radiculopathy. Patient impairments include poor posture and body mechanics, limited ROM in cervical spine, weakness in mid back/core. 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 Patient will benefit from skilled PT to address aforementioned impairments and functional limitations to meet established goals. Frequency and Duration: The patient will be seen 1-2x/week for 4 weeks Short Term Goals: 2 weeks Patient demonstrates consistency and independence with HEP to self manage symptoms. 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 Patient presents with increased middle trap strength 4+/5 to improve prolonged sitting posture for work tasks on computer. Treatment Plan: Modalities to reduce pain, spasms and effusion. Manual therapy to restore motion and function. Therapeutic exercise to improve strength and flexibility. Neuromuscular re-education for posture and balance. Therapeutic activities to return to functional activities of daily living. Electronically signed by: Renato Woods, PT, DPT Please sign and return to therapist. Thank you for your referral.
--- NOTE | 2023-07-18 12:33 | MHC.PT.DC ---
[facility] [place] [facility] [place] [facility] [place] [facility] [address] William Aguilar [address] [phone] F: [phone] F: [phone] F: [phone] F: [phone] Physical Therapy Discharge Report Diagnosis: cervical spondylosis without myelopathy or radiculopathy (RS) Date of Surgery: Date of Evaluation: 05/31/23 Date of Discharge: 07/18/23 Treatments to Date: 7 Cancellations to Date: No Shows to Date: Discharge Status: Improved Function Independent with HEP Discharge Summary: Since Wero presented without pain complaints he did not require manual therapy. Added more scapular strengthening and endurance with good tolerance. Continued to end with cervical traction as it appears to be beneficial since he does not c/o radicular sxs and he comes in without neck pain today. He presents with improved posture, increased ROM and can continue with independent HEP. He agrees to discharge from PT this date. Electronically signed by: Renato Woods, PT, DPT Please sign and return to therapist. Thank you for your referral.
== END 2023-07-18 12:33 | disposition home or self-care (01) ==
LOC: HO.PT 10:00
PROVIDERS: PCP Internal Medicine; Visit Provider Internal Medicine
DX: M47.812 Spondylosis without myelopathy or radiculopathy, cervical region (principal)
CPT/HCPCS: 97012; 97110; 97112; 97140; 97161; 97530

== ENCOUNTER 2023-09-06 06:45 | Outpatient (REF) | payer BC, SELFPAY ==
[2023-09-06 07:05] LABS: MANUAL DIFF FLAG NO
[2023-09-06 07:41] LABS: Basophils Absolute Auto 0.1 X10*3/uL (0.0-0.2); Basophils Percent Auto 1.3 % (0-2); Eosinophils Absolute Auto 0.2 X10*3/uL (0.0-0.4); Hematocrit 40.3 % (42.0-52.0); Hemoglobin 13.8 g/dl (14.0-18.0); Imm Gran Abs Auto 0.03 X10*3/uL (0.00-0.03); Imm Gran Pct Auto 0.6 % (0.0-0.4); Lymphocytes Absolute Auto 1.4 X10*3/uL (1.2-4.9); Lymphocytes Percent Auto 29.6 % (20-40); Mean Corpuscular HGB Conc 34.2 g/dl (31.0-36.0); Mean Corpuscular Hemoglobin 30.3 pg (27.0-33.0); Mean Corpuscular Volume 88.6 fL (80.0-98.0); Mean Platelet Volume 10.5 fL (9.4-12.4); Monocytes Absolute Auto 0.3 X10*3/uL (0.1-1.2); Monocytes Percent Auto 6.5 % (2-11); Neutrophils Absolute Auto 2.7 x10*3/uL (2.0-8.3); Platelet Count 254 X10*3/uL (160-400); Red Blood Count 4.55 X10*6/uL (4.60-5.80); Red Cell Distribution Width 12.9 % (11.0-16.0); White Blood Count 4.8 X10*3/uL (4.8-10.8)
[2023-09-06 08:12] LABS: Alanine Aminotransferase 37 U/L (0-40); Albumin Level 4.3 g/dL (3.5-5.0); Alkaline Phosphatase 49 U/L (39-117); Anion Gap 10 (12-20); Aspartate Amino Transferase 22 U/L (5-37); Bilirubin Total 0.3 mg/dL (0.0-1.0); Blood Urea Nitrogen 12 mg/dL (9-16); Calcium 9.7 mg/dL (8.4-10.2); Carbon Dioxide 28 mmol/L (22-29); Chloride 107 mmol/L (96-108); Cholesterol 175 mg/dL (<200); Estimated Glomerular Filt Rate > 60; Glucose Fasting 96 mg/dL (60-99); HDL Cholesterol 29 mg/dL (>40); LDL Cholesterol Calculated 116 mg/dL (<100); Potassium 3.9 mmol/L (3.3-5.1); Sodium 141 mmol/L (135-145); Total Protein 7.2 g/dL (6.5-8.0); Triglycerides 152 mg/dL (<150)
[2023-09-06 08:16] LABS: Appearance Urine Clear; Color Urine Yellow; Glucose Urine UA Negative (Negative); Leukocyte Esterase Urine Negative (Negative); Nitrite Urine Negative (Negative); Specific Gravity - Urine >= 1.030 (1.005-1.025); Urine Blood Negative (Negative); Urine Ketones Negative (Negative); Urine Protein Negative (Neg-Trace)
[2023-09-06 08:26] LABS: TSH reflex Free T4 3.96 uIU/mL (0.32-4.0); Vitamin D 25-OH Total 33.9 ng/mL (>30)
== END 2023-09-06 06:46 | disposition home or self-care (01) ==
LOC: HO.LAB 06:45
PROVIDERS: PCP Internal Medicine; Visit Provider Internal Medicine
DX: E78.00 Pure hypercholesterolemia, unspecified (principal); R30.0 Dysuria; E55.9 Vitamin D deficiency, unspecified; D64.9 Anemia, unspecified
CPT/HCPCS: 36415; 80053; 80061; 81003; 82306; 84443; 85025

== ENCOUNTER → 2023-09-15 09:34 | Outpatient (AMB) | payer BC, SELFPAY ==
[2023-09-15 09:45] VITALS: BP 118/82; PULSE 73; O2SAT 97; BMI 32.7
--- NOTE | 2023-09-15 09:45 | A.OFFPC_ITS ---
Vital Signs 09/15/23 09:45 Height 5 ft 7 in Weight 209 lb 0.4 oz BMI 32.7 BP 118/82 Blood Pressure Location Lt brachial Position Sitting Pulse 73 Pulse Source Pulse Oximeter Pulse Oximetry (%) 97 Oxygen Delivery Method Room Air Intake Visit Reasons: hyperlipidemia, migraine, cervical spondylosis Allergies latex [LATEX] Allergy (Unknown, Verified 09/15/23 10:21) RASH topiramate Adverse Reaction (Intermediate, Verified 09/15/23 10:21) increased neck pain; ED Medication List - Last Reconciled 09/15/23 by Jimmy Serrano MD arm brace (Wrist Brace Large) As directed - LEFT WRIST arm brace (Wrist Brace Large) As directed - RIGHT WRIST [id number]-paftltdxqdwcw-[id number] 50-300-40 mg (Fioricet) 1 cap PO Q8H PRN 30 days cholecalciferol (vitamin D3) 25 mcg PO DAILY ezetimibe 10 mg PO DAILY 90 days fenofibrate 160 mg PO DAILY 90 days ibuprofen (Advil) 200 mg PO Q6H PRN loratadine 10 mg PO DAILY PRN meloxicam 15 mg PO DAILY sildenafil 50 mg PO DAILY PRN 30 days sumatriptan succinate 50 mg PO Q2-4H PRN Ubrelvy (ubrogepant) 50 mg PO ONCE PRN 30 days NS Tobacco use date assessed: 05/11/23 Dental Screening Dental Screen Date: 05/11/23 HPI hyperlipidemia, migraine, cervical spondylosis HPI Details Patient comes in today for his follow up visit States that he currently feels okay Relates (+) occasional sharp pains over the back of the right side of his neck and occipital scalp area at times but states that his migraine headaches are otherwise better controlled lately He denies any dizziness Denies any chest pains, no shortness of breath No nausea/ vomiting, no abdominal pain No change in bowel habits noted Adds that he's had a recurrent itchy rash over his inguinal areas bilaterally lately and would like to get something to help clear this up He had his follow-up labs done last week - to discuss his results [facility] Medical History Smoker Erectile dysfunction Vitamin D deficiency Mixed hyperlipidemia Obesity (BMI 30-39.9) PAC (premature atrial contraction) Migraine Carpal tunnel syndrome on both sides Surgical History History of carpal tunnel surgery History of orchiectomy, unilateral History of appendectomy Family History Father Hypertension Mother Hypertension Diabetes Social History Housing: Apartment Alcohol intake: current Alcohol intake frequency: holidays/special occasions only Patient Tobacco Use Status: Current everyday Tobacco user Tobacco use type: Cigarette e-Cigarette/Vaping Use: Currently Using Second Hand Smoke Exposure: Yes Advance Directives Date on File: 05/28/20 service: No Current occupational status: employed 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 How often do you have a drink containing alcohol?: Never 3. How often do you have six or more drinks on one occasion?: Never Total Score: 0 Score Reviewed/Action Taken: Yes HEIDY-7 AMB Questionnaire HEIDY-7 Date HEIDY - 7 assessed: 05/11/23 Source: Developed by Drs. Asim Amador, Katelyn Aguirre, Maxim Thorne and colleagues, with an educational samantha from [employer]. Review of Systems Const Denies chills, Reports fatigue, Denies fever(s) and Reports headache(s) (on and off; (+) sharp pains over the right side of the occipital area ) ENT Denies dysphagia, Denies dizziness, Denies otalgia, Reports headache(s) (on and off; (+) sharp pains over the right side of the occipital area ), Reports neck pain (on and off, over the right paraspinal area ), Denies odynophagia and Denies sore throat Card Denies chest pain, Denies palpitations and Denies dyspnea Resp Denies cough and Denies dyspnea GI Denies abdominal pain, Denies constipation, Denies dysphagia, Denies heartburn, Denies diarrhea, Denies nausea, Denies odynophagia and Denies vomiting Reports erectile dysfunction, Denies dysuria and Denies urinary frequency Musc Reports back pain (over the lower back - chronic) and Reports neck pain (on and off, over the right paraspinal area ) Skin/Breast Reports rash (recurrent, over the inguinal areas bilaterally) Neuro Denies dizziness and Reports headache(s) (on and off; (+) sharp pains over the right side of the occipital area ) Endo Reports fatigue and Denies palpitations Physical exam (Primary Care) Vital Signs: Last Vital Signs Pulse 73 09/15/23 09:45 BP 118/82 09/15/23 09:45 Pulse Ox 97 09/15/23 09:45 Oxygen Delivery Method Room Air 09/15/23 09:45 BMI result Body Mass Index 32.7 Tobacco/Smoking Status: Tobacco use Status Tobacco use date assessed 05/11/23 09/15/23 09:49 Patient Tobacco Use Status Current everyday Tobacco 09/15/23 09:49 Tobacco use type Cigarette 09/15/23 09:49 e-Cigarette/Vaping Use Currently Using 09/15/23 09:49 Thrive Assessment: Date of Thrive Assessment Date Thrive assessed 05/11/23 09/15/23 09:49 Const General: no acute distress and alert HENMT Ears: TM's normal bilaterally and EAC's normal Throat: Yes posterior oropharynx normal and Yes tonsils normal (no TP congestion) Neck Neck: Yes no lymphadenopathy and Yes supple Thyroid: Thyroid normal Resp Auscultation: clear to auscultation bilaterally, no rales and no wheezes Cardio Rate: regular rate Rhythm: regular rhythm Heart sounds: no murmurs GI Palpation (GI): Soft to palpation and nontender Auscultation: normal bowel sounds General: Yes no CVA tenderness Back/Spine/Pelvis Back: no CVA tenderness Cervical Spine: No Cervical spine tenderness Thoracic/Lumbar Spine: lumbar spinal tenderness (mild) Skin Other: (+) patchy erythematous rash over the inguinal areas bilaterally Extrem General: Yes no clubbing, cyanosis or edema Results Reviewed Results Reviewed: Laboratory Tests 09/06/23 09/06/23 07:01 07:04 WBC 4.8 Hgb 13.8 L Hct 40.3 L Plt Count 254 Sodium 141 Potassium 3.9 Creatinine 1.06 Estimated GFR > 60 Fasting Glucose 96 Calcium 9.7 D AST 22 ALT 37 Triglycerides 152 H Cholesterol 175 LDL Cholesterol, Calc 116 H HDL Cholesterol 29 L 25-OH Vitamin D Total 33.9 TSH 3.96 Ur Specific [place] >= 1.030 H Urine Protein Negative Urine Glucose (UA) Negative Urine Blood Negative Urine Nitrite Negative Ur Leukocyte Esterase Negative Assessment and Plan Assessment & Plan (1) Mixed hyperlipidemia: Code(s): E78.2 - Mixed hyperlipidemia Plan: Results of his labs done last week reviewed and discussed with patient - advised that his cholesterol levels have all improved significantly across the board Reinforced low cholesterol diet Continue Fenofibrate 160 mg QD and Ezetimibe 10 mg QD Will recheck his labs and fasting lipids in 4 months for follow up (2) Migraine: Code(s): G43.909 - Migraine, unspecified, not intractable, without status migrainosus Qualifiers: Migraine type: unspecified Status migrainosus presence: without status migrainosus Intractability: not intractable Qualified Code(s): G43.909 - Migraine, unspecified, not intractable, without status migrainosus Plan: Stable lately Reinforced avoidance of migraine triggers Continue Fioricet PRN and Sumatriptan 50 mg PRN; Topiramate was increased to 50 mg Q HS by neurology previously but he stopped the Rx as he felt that it was causing him to experience increased pain over the back of his neck as well as symptoms of ED Continue Ubrelvy 50 mg PRN Follow up with neurology (Dr. Alonso) as scheduled (3) Vitamin D deficiency: Code(s): E55.9 - Vitamin D deficiency, unspecified Plan: Continue Vitamin D3 1000 units QD (4) Erectile dysfunction: Code(s): N52.9 - Male erectile dysfunction, unspecified Qualifiers: Erectile dysfunction type: unspecified Qualified Code(s): N52.9 - Male erectile dysfunction, unspecified Plan: Continue Sildenafil 50 mg PRN He is reminded to monitor his BP regularly and reminded NOT to take his ED Rx if his BP is high Serum testosterone level checked last year came out normal (5) Cervical spondylosis: Code(s): M47.812 - Spondylosis without myelopathy or radiculopathy, cervical region Plan: Cervical spine x-rays done in April 2023 revealed (+) mild multilevel cervic al spondylosis He was referred to physical therapy for his neck - states that PT helped somewhat (6) Carpal tunnel syndrome on both sides: Comment: S/P carpal tunnel release (surgery) of the left wrist on 04/27/20 and of the right wrist on 05/28/20 with significant improvement of symptoms Code(s): G56.03 - Carpal tunnel syndrome, bilateral upper limbs Plan: Follow up with orthopedics as scheduled or as needed (7) Tinea cruris: Code(s): B35.6 - Tinea cruris Plan: Will start him on Nystatin powder [id number] gm apply to rash TID (8) Smoker: Code(s): F17.200 - Nicotine dependence, unspecified, uncomplicated Plan: Counseled again on smoking cessation States that he currently uses vapes more than actual cigarettes and still does both daily; notes that his vapes contain at least 6% nicotine He was tried on Nicotine patches before but states that it did not really help him quit (9) Obesity (BMI 30-39.9): Code(s): E66.9 - Obesity, unspecified Plan: Reinforced diet/exercise as tolerated/lose weight Plan Follow up in 4 months Orders: Orders Comprehensive [place]. Panel Fast 4 Months E78.00 - Pure hypercholesterolemia, unspecified TSH reflex Free T4 4 Months E78.00 - Pure hypercholesterolemia, unspecified Vitamin D 25-OH Total 4 Months E55.9 - Vitamin D deficiency, unspecified Complete Blood Count Auto Diff 4 Months D64.9 - Anemia, unspecified Lipid Panel 4 Months E78.00 - Pure hypercholesterolemia, unspecified UA CC w/rflx Micro + Cult 4 Months R30.0 - Dysuria Medications: New nystatin (Nystop) 1 appl topical TID 60 grams 1RF Coding Level of Care Code Est Pt Level 4 (63307) Diagnoses Mixed hyperlipidemia E78.2 Migraine without status migrainosus, not intractable, unspecified migraine type G43.909 Migraine type: unspecified Status migrainosus presence: without status migrainosus Intractability: not intractable Vitamin D deficiency E55.9 Erectile dysfunction, unspecified erectile dysfunction type N52.9 Erectile dysfunction type: unspecified Cervical spondylosis M47.812 Carpal tunnel syndrome on both sides G56.03 Tinea cruris B35.6 Smoker F17.200 Obesity (BMI 30-39.9) E66.9
== END ==
PROVIDERS: PCP Internal Medicine; Visit Provider Internal Medicine
DX: E78.2 Mixed hyperlipidemia (principal); G43.909 Migraine, unspecified, not intractable, without status migrainosus; E66.9 Obesity, unspecified; Z68.32 Body mass index [BMI] 32.0-32.9, adult; E55.9 Vitamin D deficiency, unspecified; N52.9 Male erectile dysfunction, unspecified; M47.812 Spondylosis without myelopathy or radiculopathy, cervical region; G56.03 Carpal tunnel syndrome, bilateral upper limbs; B35.6 Tinea cruris; F17.200 Nicotine dependence, unspecified, uncomplicated
CPT/HCPCS: 99214

== ENCOUNTER 2024-01-15 06:54 | Outpatient (REF) | payer BC, SELFPAY ==
[2024-01-15 07:16] LABS: MANUAL DIFF FLAG NO
[2024-01-15 07:39] LABS: Basophils Absolute Auto 0.1 X10*3/uL (0.0-0.2); Basophils Percent Auto 1.1 % (0-2); Eosinophils Absolute Auto 0.3 X10*3/uL (0.0-0.4); Eosinophils Percent Auto 4.6 % (0-4); Hematocrit 41.9 % (42.0-52.0); Hemoglobin 14.1 g/dl (14.0-18.0); Imm Gran Abs Auto 0.02 X10*3/uL (0.00-0.03); Imm Gran Pct Auto 0.4 % (0.0-0.4); Lymphocytes Absolute Auto 1.5 X10*3/uL (1.2-4.9); Lymphocytes Percent Auto 27.1 % (20-40); Mean Corpuscular HGB Conc 33.7 g/dl (31.0-36.0); Mean Corpuscular Hemoglobin 29.5 pg (27.0-33.0); Mean Corpuscular Volume 87.7 fL (80.0-98.0); Mean Platelet Volume 10.6 fL (9.4-12.4); Monocytes Absolute Auto 0.5 X10*3/uL (0.1-1.2); Neutrophils Absolute Auto 3.3 x10*3/uL (2.0-8.3); Neutrophils Percent Auto 58.8 % (45-73); Platelet Count 251 X10*3/uL (160-400); Red Blood Count 4.78 X10*6/uL (4.60-5.80); Red Cell Distribution Width 12.8 % (11.0-16.0); White Blood Count 5.6 X10*3/uL (4.8-10.8)
[2024-01-15 07:52] LABS: Appearance Urine Clear; Color Urine Yellow; Glucose Urine UA Negative (Negative); Leukocyte Esterase Urine Negative (Negative); Nitrite Urine Negative (Negative); PH 5.5 (5.0-9.0); Urine Blood Negative (Negative); Urine Ketones Negative (Negative); Urine Protein Negative (Neg-Trace)
[2024-01-15 08:07] LABS: Alanine Aminotransferase 46 U/L (0-40); Albumin Level 4.3 g/dL (3.5-5.0); Alkaline Phosphatase 51 U/L (39-117); Anion Gap 11 (12-20); Aspartate Amino Transferase 27 U/L (5-37); Bilirubin Total 0.3 mg/dL (0.0-1.0); Blood Urea Nitrogen 11 mg/dL (9-16); Calcium 9.2 mg/dL (8.4-10.2); Carbon Dioxide 28 mmol/L (22-29); Chloride 105 mmol/L (96-108); Cholesterol 190 mg/dL (<200); Estimated Glomerular Filt Rate > 60; Glucose Fasting 96 mg/dL (60-99); HDL Cholesterol 27 mg/dL (>40); LDL Cholesterol Calculated 124 mg/dL (<100); Potassium 3.7 mmol/L (3.3-5.1); Sodium 140 mmol/L (135-145); Total Protein 7.4 g/dL (6.5-8.0); Triglycerides 197 mg/dL (<150)
[2024-01-15 08:26] LABS: TSH reflex Free T4 3.89 uIU/mL (0.32-4.0); Vitamin D 25-OH Total 27.3 ng/mL (>30)
== END 2024-01-15 06:55 | disposition home or self-care (01) ==
LOC: HO.LAB 06:54
PROVIDERS: PCP Internal Medicine; Visit Provider Internal Medicine
DX: D64.9 Anemia, unspecified (principal); E78.00 Pure hypercholesterolemia, unspecified; R30.0 Dysuria; E55.9 Vitamin D deficiency, unspecified
CPT/HCPCS: 36415; 80053; 80061; 81003; 82306; 84443; 85025

== ENCOUNTER 2024-01-25 09:43 | Outpatient (AMB) | payer BC, SELFPAY ==
[2024-01-25 09:57] VITALS: BP 118/78; PULSE 88; O2SAT 95; BMI 33.9
--- NOTE | 2024-01-25 09:57 | A.OFFPC_ITS ---
Vital Signs 01/25/24 09:57 Height 5 ft 7 in Weight 216 lb 8 oz BMI 33.9 BP 118/78 Blood Pressure Location Lt brachial Position Sitting Pulse 88 Pulse Source Pulse Oximeter Pulse Oximetry (%) 95 Oxygen Delivery Method Room Air Intake Visit Reasons: hyperlipidemia, migraine [employer] Manager Required: No Accompanied by: Self / Same As Patient Allergies latex [LATEX] Allergy (Unknown, Verified 01/25/24 10:37) RASH topiramate Adverse Reaction (Intermediate, Verified 01/25/24 10:37) increased neck pain; ED Medication List - Last Reconciled 01/25/24 by Jimmy Serrano MD arm brace (Wrist Brace Large) As directed - LEFT WRIST arm brace (Wrist Brace Large) As directed - RIGHT WRIST erheiadyjd-lilhjrwpquwrc-dnre 50-300-40 mg (Fioricet) 1 cap PO Q8H PRN 30 days cholecalciferol (vitamin D3) 25 mcg PO DAILY ezetimibe 10 mg PO DAILY 90 days fenofibrate 160 mg PO DAILY 90 days ibuprofen (Advil) 200 mg PO Q6H PRN loratadine 10 mg PO DAILY PRN meloxicam 15 mg PO DAILY nystatin (Nystop) 1 appl topical TID sildenafil 50 mg PO DAILY PRN 30 days sumatriptan succinate 50 mg PO Q2-4H PRN Ubrelvy (ubrogepant) 50 mg PO ONCE PRN 30 days NS Tobacco use date assessed: 01/25/24 Dental Screening Dental Screen Date: 01/25/24 Did you have a dental visit in the last 12 months?: Yes Did you have a dental problem in the last 6 months where you did not have access to dental care?: No Was dental information given to patient?: Patient has dentist HPI hyperlipidemia, migraine HPI Details Patient comes in today for his follow up visit States that he continues to experience recurrent right occipital headaches and sharp pains over the back of the right side of his neck Notes that the symptoms have been occurring almost on a daily basis lately He denies any dizziness He was seen by Dr. Alonso for the same reasons last year and was diagnosed with migraine - was started on Topiramate for headache prophylaxis but patient stopped taking this after a while as he noted that Topiramate was causing him to experience symptoms of ED He denies any chest pains, no shortness of breath No nausea/ vomiting, no abdominal pain No change in bowel habits noted He had his follow-up labs done last week - to discuss his results Would also like to get his flu shot today [facility] Medical History Smoker Erectile dysfunction Vitamin D deficiency Mixed hyperlipidemia Obesity (BMI 30-39.9) PAC (premature atrial contraction) Migraine Carpal tunnel syndrome on both sides Surgical History History of carpal tunnel surgery History of orchiectomy, unilateral History of appendectomy Family History Father Hypertension Mother Hypertension Diabetes Social History Housing: Apartment Alcohol intake: current Alcohol intake frequency: holidays/special occasions only Patient Tobacco Use Status: Current everyday Tobacco user Tobacco use type: Cigarette e-Cigarette/Vaping Use: Currently Using Second Hand Smoke Exposure: Yes Advance Directives Date on File: 05/28/20 service: No Current occupational status: employed 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 1. Little interest or pleasure in doing things: not at all 2. Feeling down, depressed, or hopeless: not at all 3. Trouble falling or staying asleep, or sleeping too much: not at all 4. Feeling tired or having little energy: not at all 5. Poor appetite or overeating: not at all 6. Feeling bad about yourself - or that you are a failure or have let yourself or your family down: not at all 7. Trouble concentrating on things, such as reading the newspaper or watching television: not at all 8. Moving or speaking so slowly that other people could have noticed. Or the opposite - being so fidgety or restless that you have been moving around a lot more than usual: not at all 9. Thoughts that you would be better off or of hurting yourself in some way: not at all Total score: 0 Depression Screening Interpretation: Negative Depression Screening Done: Yes 92015 - PHQ-9 Billing: Yes Source: Developed by Katelyn Wade Kurt Kroenke and colleagues, with an educational samantha from [employer]. Thrive Questionnaire Date Thrive assessed: 01/25/24 I am a: Patient What is your living situation today?: I have a steady place to live Within the past 12 months, did the food you bought not last and you didn't have the money to get more?: Never true Within the past 12 months, did you worry whether your food would run out before you got money to buy more?: Never true Do you have trouble paying for medicines?: No Do you have trouble getting transportation to medical appointments?: No Do you have trouble paying your heating and electricity bill?: No Do you have trouble taking care of your child, family member or friend?: No Do you have trouble with day-to-day activities such as bathing, preparing meals, shopping, managing finances, etc.?: No Are you currently unemployed and looking for a job?: No Are you interested in more education?: No Please select the resources that you would like help with: None Currently or been in a relationship where the following occur: No concerns reported THRIVE Score: 0 AUDIT C Alcohol Use Questionnaire (AUDIT-C) 1. How often do you have a drink containing alcohol?: Never 3. How often do you have six or more drinks on one occasion?: Never Total Score: 0 Score Reviewed/Action Taken: Yes HEIDY-7 AMB Questionnaire HEIDY-7 Date HEIDY - 7 assessed: 01/25/24 Feeling nervous, anxious, or on edge: 0 = Not at all Not being able to stop or control worryin = Not at all Worrying too much about different things: 0 = Not at all Trouble relaxin = Not at all Being so restless that it is hard to sit still: 0 = Not at all Becoming easily annoyed or irritable: 0 = Not at all Feeling afraid as if something awful might happen: 0 = Not at all Total HEIDY-7 score (0-4 normal; 5-9 mild; 10-14 moderate; 15-21 severe): 0 Source: Developed by Katelyn Wade Kurt Kroenke and colleagues, with an educational samantha from [employer]. Review of Systems Const Denies chills, Reports difficulty sleeping (at times due to his headaches), Denies fatigue, Denies fever(s) and Reports headache(s) (recurrent; (+) sharp pains over the right side of the occipital area ) Eyes Denies blurry vision ENT Denies dysphagia, Denies dizziness, Denies otalgia, Reports headache(s) (recurrent; (+) sharp pains over the right side of the occipital area ), Reports neck pain (on and off, over the right paraspinal area ), Denies odynophagia and Denies sore throat Card Denies chest pain, Denies palpitations and Denies dyspnea Resp Denies chest congestion, Denies cough and Denies dyspnea GI Denies abdominal pain, Denies constipation, Denies dysphagia, Denies heartburn, Denies diarrhea, Denies nausea, Denies odynophagia and Denies vomiting Reports erectile dysfunction, Denies dysuria and Denies urinary frequency Musc Reports back pain (over the lower back - chronic) and Reports neck pain (on and off, over the right paraspinal area ) Skin/Breast Denies rash Neuro Denies dizziness and Reports headache(s) (recurrent; (+) sharp pains over the right side of the occipital area ) Endo Denies fatigue and Denies palpitations Physical exam (Primary Care) Vital Signs: Last Vital Signs Pulse 88 01/25/24 09:57 BP 118/78 01/25/24 09:57 Pulse Ox 95 01/25/24 09:57 Oxygen Delivery Method Room Air 01/25/24 09:57 BMI result Body Mass Index 33.9 Tobacco/Smoking Status: Tobacco use Status Tobacco use date assessed 01/25/24 01/25/24 09:58 Patient Tobacco Use Status Current everyday Tobacco 01/25/24 09:58 Tobacco use type Cigarette 01/25/24 09:58 e-Cigarette/Vaping Use Currently Using 01/25/24 09:58 PHQ-9: PHQ-9 Score PHQ-9: Total score 0 01/25/24 10:50 Depression Screening Interpretation: Negative Thrive Assessment: Date of Thrive Assessment Date Thrive assessed 01/25/24 01/25/24 09:58 Currently or been in a relationship where the following occur: No concerns reported Const General: no acute distress and alert HENMT Ears: TM's normal bilaterally and EAC's normal Throat: Yes posterior oropharynx normal and Yes tonsils normal (no TP congestion) Neck Neck: Yes no lymphadenopathy and Yes supple Thyroid: Thyroid normal Resp Auscultation: clear to auscultation bilaterally, no rales and no wheezes Cardio Rate: regular rate Rhythm: regular rhythm Heart sounds: no murmurs GI Palpation (GI): Soft to palpation and nontender Auscultation: normal bowel sounds General: Yes no CVA tenderness Back/Spine/Pelvis Back: no CVA tenderness Cervical Spine: No Cervical spine tenderness Thoracic/Lumbar Spine: lumbar spinal tenderness (mild) Extrem General: Yes no clubbing, cyanosis or edema Office Procedures Flu Questionnaire Does the patient have a severe egg allergy?: No Does the patient have severe life threatening allergies?: No Does the patient have a fever or illness today?: No Has the patient ever had Guillain-[place] Syndrome?: No Has the patient ever had any past reaction to a flu shot?: No Immunizations Fluarix Triv 0274-1008 (PF) 45 mcg (15 mcg x 3)/0.5 mL IM syringe Performing Provider: Jimmy Serrano MD Performing Location[facility] [place] [facility] Administered by: JUANIS Posey on 01/25/24 10:11 Dose Route Admin Location Dispensed Lot Number Expiration Date NDC Environmental Science Instructor 0.5 mL IM Left Deltoid 0.5 mL [id number] 09/02/24 [id number] Yones VIS Given Date VIS Provided VIS Publication Date 01/25/24 Single Vaccine 20 Eligibility Eligibility Date Funding Source Not [facility] Eligible 01/25/24 Private Results Reviewed Results Reviewed: Laboratory Tests 01/15/24 01/15/24 07:09 07:13 WBC 5.6 Hgb 14.1 Hct 41.9 L Plt Count 251 Sodium 140 Potassium 3.7 Creatinine 1.11 Estimated GFR > 60 Fasting Glucose 96 Calcium 9.2 AST 27 ALT 46 H Triglycerides 197 H Cholesterol 190 LDL Cholesterol, Calc 124 H HDL Cholesterol 27 L 25-OH Vitamin D Total 27.3 L TSH 3.89 Ur Specific [place] 1.020 Urine Protein Negative Urine Glucose (UA) Negative Urine Blood Negative Urine Nitrite Negative Ur Leukocyte Esterase Negative Coding Level of Care Code Est Pt Level 4 (91340) Diagnoses Mixed hyperlipidemia E78.2 Migraine without status migrainosus, not intractable, unspecified migraine type G43.909 Migraine type: unspecified Status migrainosus presence: without status migrainosus Intractability: not intractable Cervical spondylosis M47.812 Vitamin D deficiency E55.9 Erectile dysfunction, unspecified erectile dysfunction type N52.9 Erectile dysfunction type: unspecified Carpal tunnel syndrome on both sides G56.03 Smoker F17.200 Obesity (BMI 30-39.9) E66.9 Additional Codes PHQ-9 - 71752 - PHQ-9 Billing: Yes ([id number]) Assessment & Plan Assessment & Plan (1) Mixed hyperlipidemia: Code(s): E78.2 - Mixed hyperlipidemia Category: Medical Plan: Results of his labs done last week reviewed and discussed with patient - he is advised that his cholesterol levels have all increased slightly from previous Reinforced low cholesterol diet Continue Fenofibrate 160 mg QD and Ezetimibe 10 mg QD for now Will recheck his labs and fasting lipids in 4 months for follow up (2) Migraine: Code(s): G43.909 - Migraine, unspecified, not intractable, without status migrainosus Category: Medical Qualifiers: Migraine type: unspecified Status migrainosus presence: without status migrainosus Intractability: not intractable Qualified Code(s): G43.909 - Migraine, unspecified, not intractable, without status migrainosus Plan: Reinforced avoidance of migraine triggers Continue Fioricet PRN and Sumatriptan 50 mg PRN; Topiramate was increased to 50 mg Q HS by neurology previously but he stopped the Rx as he felt that it was causing him to experience increased pain over the back of his neck as well as symptoms of ED Continue Ubrelvy 50 mg PRN for now Will refer him back to neurology for further evaluation and management/recommendations (3) Cervical spondylosis: Code(s): M47.812 - Spondylosis without myelopathy or radiculopathy, cervical region Category: Medical Plan: Cervical spine x-rays done in April 2023 revealed (+) mild multilevel cervical spondylosis He was referred to physical therapy for his neck - states that PT helped somewhat Have also discussed with patient that there is a possibility that his recurrent right neck pains and pains over the back of his head may also be related to his cervical spondylosis and may not necessarily have anything to do with his migraine headaches (4) Vitamin D deficiency: Code(s): E55.9 - Vitamin D deficiency, unspecified Category: Medical Plan: Continue Vitamin D3 1000 units QD (5) Erectile dysfunction: Code(s): N52.9 - Male erectile dysfunction, unspecified Category: Medical Qualifiers: Erectile dysfunction type: unspecified Qualified Code(s): N52.9 - Male erectile dysfunction, unspecified Plan: Continue Sildenafil 50 mg PRN He is reminded to monitor his BP regularly and reminded NOT to take his ED Rx if his BP is high Serum testosterone level checked last year came out normal (6) Carpal tunnel syndrome on both sides: Comment: S/P carpal tunnel release (surgery) of the left wrist on 04/27/20 and of the right wrist on 05/28/20 with significant improvement of symptoms Code(s): G56.03 - Carpal tunnel syndrome, bilateral upper limbs Category: Medical Plan: Follow up with orthopedics as scheduled or as needed (7) Smoker: Code(s): F17.200 - Nicotine dependence, unspecified, uncomplicated Category: Social Hx Plan: He is counseled again on smoking cessation States that he currently uses vapes more than actual cigarettes but still does both daily; notes that his vapes contain at least 6% nicotine He was tried on Nicotine patches before but states that it did not really help him quit (8) Obesity (BMI 30-39.9): Code(s): E66.9 - Obesity, unspecified Category: Medical Plan: Reinforced diet/exercise as tolerated/lose weight Plan As requested, flu vaccine given to patient today Follow up in 4 months Orders: Orders Influenza [id number] Immunization Today Z23 - Encounter for immunization Comprehensive [place]. Panel Fast 4 Months E78.00 - Pure hypercholesterolemia, unspecified Lipid Panel 4 Months E78.00 - Pure hypercholesterolemia, unspecified Referrals Neurology Referral R51.9 - Headache, unspecified
== END 2024-01-25 10:47 | disposition home or self-care (01) ==
PROVIDERS: PCP Internal Medicine; Visit Provider Internal Medicine
DX: E78.2 Mixed hyperlipidemia (principal); G43.909 Migraine, unspecified, not intractable, without status migrainosus; E66.9 Obesity, unspecified; Z68.33 Body mass index [BMI] 33.0-33.9, adult; M47.812 Spondylosis without myelopathy or radiculopathy, cervical region; E55.9 Vitamin D deficiency, unspecified; N52.9 Male erectile dysfunction, unspecified; G56.03 Carpal tunnel syndrome, bilateral upper limbs; F17.200 Nicotine dependence, unspecified, uncomplicated

== ENCOUNTER → 2024-01-25 09:43 | Outpatient (BNVA) | payer BC, SELFPAY | PROVIDERS: PCP Internal Medicine; Visit Provider Internal Medicine | DX: E78.2 Mixed hyperlipidemia (principal); G43.909 Migraine, unspecified, not intractable, without status migrainosus; M47.812 Spondylosis without myelopathy or radiculopathy, cervical region; E55.9 Vitamin D deficiency, unspecified; N52.9 Male erectile dysfunction, unspecified; Z23 Encounter for immunization; E66.9 Obesity, unspecified; Z68.33 Body mass index [BMI] 33.0-33.9, adult; F17.210 Nicotine dependence, cigarettes, uncomplicated; Z79.899 Other long term (current) drug therapy; Z86.69 Personal history of other diseases of the nervous system and sense organs | CPT/HCPCS: 90471; 90656; 96127 ==

== ENCOUNTER 2024-05-20 07:27 | Outpatient (REF) | payer BC, SELFPAY ==
[2024-05-20 09:46] LABS: Alanine Aminotransferase 58 U/L (0-40); Albumin Level 4.3 g/dL (3.5-5.0); Alkaline Phosphatase 53 U/L (39-117); Anion Gap 12 (12-20); Aspartate Amino Transferase 30 U/L (5-37); Bilirubin Total 0.2 mg/dL (0.0-1.0); Blood Urea Nitrogen 13 mg/dL (9-16); Calcium 9.1 mg/dL (8.4-10.2); Carbon Dioxide 25 mmol/L (22-29); Chloride 108 mmol/L (96-108); Cholesterol 191 mg/dL (<200); Estimated Glomerular Filt Rate > 60; Glucose Fasting 92 mg/dL (60-99); HDL Cholesterol 29 mg/dL (>40); LDL Cholesterol Calculated 127 mg/dL (<100); Potassium 3.9 mmol/L (3.3-5.1); Sodium 141 mmol/L (135-145); Total Protein 7.6 g/dL (6.5-8.0); Triglycerides 179 mg/dL (<150)
== END 2024-05-20 07:28 | disposition home or self-care (01) ==
LOC: HO.LAB 07:27
PROVIDERS: PCP Internal Medicine; Visit Provider Internal Medicine
DX: E78.00 Pure hypercholesterolemia, unspecified (principal)
CPT/HCPCS: 36415; 80053; 80061

== ENCOUNTER 2024-05-29 10:04 | Outpatient (AMB) | payer BC, SELFPAY ==
--- NOTE | 2024-05-29 10:08 | A.OFFPC_ITS ---
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 Required: No Accompanied by: Self / Same As Patient Allergies latex [LATEX] Allergy (Unknown, Verified 05/29/24 10:37) RASH topiramate Adverse Reaction (Intermediate, Verified 05/29/24 10:37) increased neck pain; ED Medication List - Last Reconciled 05/29/24 by Jimmy Serrano MD arm brace (Wrist Brace Large) As directed - LEFT WRIST arm brace (Wrist Brace Large) As directed - RIGHT WRIST cholecalciferol (vitamin D3) 25 mcg PO DAILY ezetimibe 10 mg PO DAILY 90 days fenofibrate 160 mg PO DAILY 90 days ibuprofen (Advil) 200 mg PO Q6H PRN sildenafil 50 mg PO DAILY PRN 30 days Tobacco use date assessed: 05/29/24 Dental Screening Dental Screen Date: 05/29/24 Did you have a dental visit in the last 12 months?: Yes Did you have a dental problem in the last 6 months where you did not have access to dental care?: No Was dental information given to patient?: Patient has [facility] Details Patient comes in today for his follow up visit for his hyperlipidemia and recurrent headaches States that he feels okay He denies any dizziness but still has on and off headaches - thinks that his neck pain may actually be contributing to or causing his headaches Denies any chest pains, no increased SOB No nausea/vomiting, no abdominal pain No change in bowel habits noted He had his follow up labs done last week - to discuss his results [facility] Medical History Smoker Erectile dysfunction Vitamin D deficiency Mixed hyperlipidemia Obesity (BMI 30-39.9) PAC (premature atrial contraction) Migraine Carpal tunnel syndrome on both sides Surgical History History of carpal tunnel surgery History of orchiectomy, unilateral History of appendectomy Family History Father Hypertension Mother Hypertension Diabetes Social History Housing: Apartment Alcohol intake: current Alcohol intake frequency: holidays/special occasions only Patient Tobacco Use Status: Current everyday Tobacco user Tobacco use type: Cigarette e-Cigarette/Vaping Use: Currently Using Second Hand Smoke Exposure: Yes Advance Directives Date on File: 05/28/20 service: No Current occupational status: employed 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 1. Little interest or pleasure in doing things: not at all 2. Feeling down, depressed, or hopeless: not at all 3. Trouble falling or staying asleep, or sleeping too much: not at all 4. Feeling tired or having little energy: not at all 5. Poor appetite or overeating: not at all 6. Feeling bad about yourself - or that you are a failure or have let yourself or your family down: not at all 7. Trouble concentrating on things, such as reading the newspaper or watching television: not at all 8. Moving or speaking so slowly that other people could have noticed. Or the opposite - being so fidgety or restless that you have been moving around a lot more than usual: not at all 9. Thoughts that you would be better off or of hurting yourself in some way: not at all Total score: 0 Depression Screening Interpretation: Negative Depression Screening Done: Yes 01978 - PHQ-9 Billing: Yes Source: Developed by Drs. Asim Amador, Katelyn Aguirre, Maxim Thorne and colleagues, with an educational samantha from [employer] Thrive Questionnaire Date Thrive assessed: 05/29/24 I am a: Patient What is your living situation today?: I have a steady place to live Within the past 12 months, did the food you bought not last and you didn't have the money to get more?: Never true Within the past 12 months, did you worry whether your food would run out before you got money to buy more?: Never true Do you have trouble paying for medicines?: No Do you have trouble getting transportation to medical appointments?: No Do you have trouble paying your heating and electricity bill?: No Do you have trouble taking care of your child, family member or friend?: No Do you have trouble with day-to-day activities such as bathing, preparing meals, shopping, managing finances, etc.?: No Are you currently unemployed and looking for a job?: No Are you interested in more education?: No Please select the resources that you would like help with: None Currently or been in a relationship where the following occur: No concerns reported THRIVE Score: 0 AUDIT C Alcohol Use Questionnaire (AUDIT-C) 1. How often do you have a drink containing alcohol?: Never 3. How often do you have six or more drinks on one occasion?: Never Total Score: 0 Score Reviewed/Action Taken: Yes HEIDY-7 AMB Questionnaire HEIDY-7 Date HEIDY - 7 assessed: 05/29/24 Feeling nervous, anxious, or on edge: 0 = Not at all Not being able to stop or control worryin = Not at all Worrying too much about different things: 0 = Not at all Trouble relaxin = Not at all Being so restless that it is hard to sit still: 0 = Not at all Becoming easily annoyed or irritable: 0 = Not at all Feeling afraid as if something awful might happen: 0 = Not at all Total HEIDY-7 score (0-4 normal; 5-9 mild; 10-14 moderate; 15-21 severe): 0 Source: Developed by Drs. Asim Amador, Katelyn Aguirre, Maxim Thorne and colleagues, with an educational samantha from [employer] Review of Systems Const Denies chills, Reports difficulty sleeping (at times due to his headaches), Denies fatigue, Denies fever(s) and Reports headache(s) (recurrent - (+) sharp pains over the right side of the occipital area ) ENT Denies dysphagia, Denies dizziness, Denies otalgia, Reports headache(s) (recurrent - (+) sharp pains over the right side of the occipital area ), Reports neck pain (on and off, over the right paraspinal area ), Denies odynophagia and Denies sore throat Card Denies chest pain, Denies palpitations and Denies dyspnea Resp Denies chest congestion, Denies cough and Denies dyspnea GI Denies abdominal pain, Denies constipation, Denies dysphagia, Denies heartburn, Denies diarrhea, Denies nausea, Denies odynophagia and Denies vomiting Reports erectile dysfunction, Denies dysuria and Denies urinary frequency Musc Reports back pain (over the lower back - chronic) and Reports neck pain (on and off, over the right paraspinal area ) Skin/Breast Denies rash Neuro Denies dizziness and Reports headache(s) (recurrent - (+) sharp pains over the right side of the occipital area ) Endo Denies fatigue and Denies palpitations Physical exam (Primary Care) Vital Signs: Last Vital Signs Pulse 73 05/29/24 10:09 BP 116/80 05/29/24 10:09 Pulse Ox 96 05/29/24 10:09 Oxygen Delivery Method Room Air 05/29/24 10:09 BMI result Body Mass Index 33.6 Tobacco/Smoking Status: Tobacco use Status Tobacco use date assessed 05/29/24 05/29/24 10:16 Patient Tobacco Use Status Current everyday Tobacco 05/29/24 10:16 Tobacco use type Cigarette 05/29/24 10:16 e-Cigarette/Vaping Use Currently Using 05/29/24 10:16 PHQ-9: PHQ-9 Score PHQ-9: Total score 0 05/29/24 14:53 Depression Screening Interpretation: Negative Thrive Assessment: Date of Thrive Assessment Date Thrive assessed 05/29/24 05/29/24 10:16 Currently or been in a relationship where the following occur: No concerns reported Const General: no acute distress and alert HENMT Ears: TM's normal bilaterally and EAC's normal Throat: Yes posterior oropharynx normal and Yes tonsils normal (no TP congestion) Neck Neck: Yes supple and No lymphadenopathy Thyroid: Thyroid normal Resp Auscultation: clear to auscultation bilaterally, no rales and no wheezes Cardio Rate: regular rate Rhythm: regular rhythm Heart sounds: no murmurs GI Palpation (GI): Soft to palpation and nontender Auscultation: normal bowel sounds General: Yes no CVA tenderness Back/Spine/Pelvis Back: no CVA tenderness Cervical Spine: cervical muscular tenderness (especially on the right side) and Cervical spine tenderness Thoracic/Lumbar Spine: lumbar spinal tenderness (mild) Skin Rashes: no rashes Extrem General: Yes no clubbing, cyanosis or edema Results Reviewed Results Reviewed: Laboratory Tests 05/20/24 07:35 Sodium 141 Potassium 3.9 Creatinine 1.05 Estimated GFR > 60 Fasting Glucose 92 Calcium 9.1 AST 30 ALT 58 H Triglycerides 179 H Cholesterol 191 LDL Cholesterol, Calc 127 H HDL Cholesterol 29 L Coding Level of Care Code Est Pt Level 4 (01836) Complex EM visit Add On G2211 Diagnoses Mixed hyperlipidemia E78.2 Migraine without status migrainosus, not intractable, unspecified migraine type G43.909 Migraine type: unspecified Status migrainosus presence: without status migrainosus Intractability: not intractable Cervical spondylosis M47.812 Vitamin D deficiency E55.9 Erectile dysfunction, unspecified erectile dysfunction type N52.9 Erectile dysfunction type: unspecified Carpal tunnel syndrome on both sides G56.03 Smoker F17.200 Obesity (BMI 30-39.9) E66.9 Additional Codes PHQ-9 - 98039 - PHQ-9 Billing: Yes ([id number]) Assessment & Plan Assessment & Plan (1) Mixed hyperlipidemia: Code(s): E78.2 - Mixed hyperlipidemia Category: Medical Plan: Results of his labs done last week reviewed and discussed with patient - he is advised that his cholesterol levels are mostly unchanged from previous and needs to improve further Reinforced low cholesterol diet Continue Fenofibrate 160 mg QD and Ezetimibe 10 mg QD for now Will recheck his labs and fasting lipids in 4 months for follow up (2) Migraine: Code(s): G43.909 - Migraine, unspecified, not intractable, without status migrainosus Category: Medical Qualifiers: Migraine type: unspecified Status migrainosus presence: without status migrainosus Intractability: not intractable Qualified Code(s): G43.909 - Migraine, unspecified, not intractable, without status migrainosus Plan: Reinforced avoidance of migraine triggers Continue Fioricet PRN and Sumatriptan 50 mg PRN; Topiramate was increased to 50 mg Q HS by neurology previously but he stopped the Rx as he felt that it was causing him to experience increased pain over the back of his neck as well as symptoms of ED Continue Ubrelvy 50 mg PRN for now He has been referred back to neurology for further evaluation and management/recommendations (3) Cervical spondylosis: Code(s): M47.812 - Spondylosis without myelopathy or radiculopathy, cervical region Category: Medical Plan: Cervical spine x-rays done in April 2023 revealed (+) mild multilevel cervical spondylosis He was previously referred to physical therapy for his neck - states that PT helped somewhat Have also discussed with patient that there is a possibility that his recurrent right neck pains and pains over the back of his head may also be related to his cervical spondylosis and may not necessarily have anything to do with his migraine headaches Will start him on Tizanidine 4 mg TID PRN (4) Vitamin D deficiency: Code(s): E55.9 - Vitamin D deficiency, unspecified Category: Medical Plan: Continue Vitamin D3 1000 units QD (5) Erectile dysfunction: Code(s): N52.9 - Male erectile dysfunction, unspecified Category: Medical Qualifiers: Erectile dysfunction type: unspecified Qualified Code(s): N52.9 - Male erectile dysfunction, unspecified Plan: Continue Sildenafil 50 mg PRN He is reminded to monitor his BP regularly and reminded NOT to take his ED Rx if his BP is high Serum testosterone level checked last year came out normal (6) Carpal tunnel syndrome on both sides: Comment: S/P carpal tunnel release (surgery) of the left wrist on 04/27/20 and of the right wrist on 05/28/20 with significant improvement of symptoms Code(s): G56.03 - Carpal tunnel syndrome, bilateral upper limbs Category: Medical Plan: Follow up with orthopedics as scheduled or as needed (7) Smoker: Code(s): F17.200 - Nicotine dependence, unspecified, uncomplicated Category: Social Hx Plan: He is counseled again on smoking cessation States that he currently uses vapes more than actual cigarettes but still does both daily; notes that his vapes contain at least 6% nicotine He was tried on Nicotine patches before but states that it did not really help him quit (8) Obesity (BMI 30-39.9): Code(s): E66.9 - Obesity, unspecified Category: Medical Plan: Reinforced diet/exercise as tolerated/lose weight Plan Follow up in 4 months Orders: Orders Complete Blood Count Auto Diff 4 Months D64.9 - Anemia, unspecified UA CC w/rflx Micro + Cult 4 Months R30.0 - Dysuria Comprehensive [place]. Panel Fast 4 Months E78.00 - Pure hypercholesterolemia, unspecified Lipid Panel 4 Months E78.00 - Pure hypercholesterolemia, unspecified TSH reflex Free T4 4 Months E78.00 - Pure hypercholesterolemia, unspecified Vitamin D 25-OH Total 4 Months E55.9 - Vitamin D deficiency, unspecified Medications: New tizanidine 4 mg PO Q8H 30 days PRN 90 tabs 0RF neck pain
[2024-05-29 10:09] VITALS: BP 116/80; PULSE 73; O2SAT 96; BMI 33.6
== END 2024-05-29 10:47 | disposition home or self-care (01) ==
LOC: HO.HMCH 10:04
PROVIDERS: PCP Internal Medicine; Visit Provider Internal Medicine
DX: E78.2 Mixed hyperlipidemia (principal); G43.909 Migraine, unspecified, not intractable, without status migrainosus; E66.9 Obesity, unspecified; Z68.33 Body mass index [BMI] 33.0-33.9, adult; M47.812 Spondylosis without myelopathy or radiculopathy, cervical region; E55.9 Vitamin D deficiency, unspecified; N52.9 Male erectile dysfunction, unspecified; G56.03 Carpal tunnel syndrome, bilateral upper limbs; F17.200 Nicotine dependence, unspecified, uncomplicated

== ENCOUNTER → 2024-05-29 10:04 | Outpatient (BNVA) | payer BC, SELFPAY | PROVIDERS: PCP Internal Medicine; Visit Provider Internal Medicine | DX: E78.2 Mixed hyperlipidemia (principal); G43.909 Migraine, unspecified, not intractable, without status migrainosus; M47.812 Spondylosis without myelopathy or radiculopathy, cervical region; E55.9 Vitamin D deficiency, unspecified; N52.9 Male erectile dysfunction, unspecified; E66.9 Obesity, unspecified; Z68.33 Body mass index [BMI] 33.0-33.9, adult; F17.210 Nicotine dependence, cigarettes, uncomplicated; Z86.69 Personal history of other diseases of the nervous system and sense organs; Z79.899 Other long term (current) drug therapy | CPT/HCPCS: 96127 ==

== ENCOUNTER 2024-09-23 07:11 | Outpatient (REF) | payer BC, SELFPAY ==
[2024-09-23 07:21] LABS: MANUAL DIFF FLAG NO
[2024-09-23 07:34] LABS: Hematocrit 41.8 % (42.0-52.0); Hemoglobin 14.2 g/dl (14.0-18.0); Imm Gran Abs Auto 0.03 X10*3/uL (0.00-0.03); Imm Gran Pct Auto 0.6 % (0.0-0.4); Lymphocytes Absolute Auto 1.7 X10*3/uL (1.2-4.9); Mean Corpuscular HGB Conc 34.0 g/dl (31.0-36.0); Mean Corpuscular Hemoglobin 29.6 pg (27.0-33.0); Mean Corpuscular Volume 87.1 fL (80.0-98.0); NRBC Abs Auto 0.000 X10*3/uL (0.0-0.012); NRBC Pct Auto 0.0 /100WBC (0.0-0.2); Platelet Count 244 X10*3/uL (160-400); Red Blood Count 4.80 X10*6/uL (4.60-5.80); White Blood Count 4.9 X10*3/uL (4.8-10.8)
[2024-09-23 07:56] LABS: Appearance Urine Clear; Glucose Urine UA Negative (Negative); PH 5.5 (5.0-9.0); Specific Gravity - Urine 1.015 (1.005-1.025)
[2024-09-23 08:23] LABS: Alanine Aminotransferase 69 U/L (0-40); Albumin Level 4.5 g/dL (3.5-5.0); Alkaline Phosphatase 54 U/L (39-117); Anion Gap 12 (12-20); Aspartate Amino Transferase 38 U/L (5-37); Blood Urea Nitrogen 9 mg/dL (9-16); Calcium 9.1 mg/dL (8.4-10.2); Carbon Dioxide 26 mmol/L (22-29); Chloride 109 mmol/L (96-108); Cholesterol 188 mg/dL (<200); Estimated Glomerular Filt Rate > 60; HDL Cholesterol 30 mg/dL (>40); Potassium 4.4 mmol/L (3.3-5.1); Sodium 143 mmol/L (135-145); Total Protein 7.1 g/dL (6.5-8.0); Triglycerides 153 mg/dL (<150)
[2024-09-23 09:35] LABS: Free T4 (Free Thyroxine) 0.90 ng/dL (0.71-1.85)
== END 2024-09-23 07:12 | disposition home or self-care (01) ==
LOC: HO.LAB 07:11
PROVIDERS: PCP Internal Medicine; Visit Provider Internal Medicine
DX: R30.0 Dysuria (principal); D64.9 Anemia, unspecified; E78.00 Pure hypercholesterolemia, unspecified; E55.9 Vitamin D deficiency, unspecified
CPT/HCPCS: 36415; 80053; 80061; 81003; 82306; 84439; 84443; 85025

== ENCOUNTER 2024-10-02 10:58 | Outpatient (AMB) | payer BC, SELFPAY ==
[2024-10-02 11:00] VITALS: BP 130/80; PULSE 72; O2SAT 95; BMI 32.8
--- NOTE | 2024-10-02 11:00 | MHC.PC.OV ---
Vital Signs 10/02/24 11:00 Height 5 ft 7 in Weight 209 lb 8 oz BMI 32.8 BP 130/80 Blood Pressure Location Lt brachial Position Sitting Pulse 72 Pulse Source Pulse Oximeter Pulse Oximetry (%) 95 Oxygen Delivery Method Room Air Intake Visit Reasons: hyperlipidemia, cervical spondylosis Manager Commercial Required: No Accompanied by: Self / Same As Patient Allergies latex (LATEX) Allergy (Unknown, Verified 10/02/24 11:18) RASH topiramate Adverse Reaction (Intermediate, Verified 10/02/24 11:18) increased neck pain; ED Medication List - Last Reconciled 10/02/24 by Jimmy Serrano MD arm brace (Wrist Brace Large) As directed - LEFT WRIST arm brace (Wrist Brace Large) As directed - RIGHT WRIST cholecalciferol (vitamin D3) 25 mcg PO DAILY ezetimibe 10 mg PO DAILY 90 days fenofibrate 160 mg PO DAILY 90 days ibuprofen (Advil) 200 mg PO Q6H PRN sildenafil 50 mg PO DAILY PRN 30 days tizanidine 4 mg PO Q8H PRN 30 days Tobacco use date assessed: 10/02/24 Dental Screening Dental Screen Date: 10/02/24 Did you have a dental visit in the last 12 months?: Yes Did you have a dental problem in the last 6 months where you did not have access to dental care?: No Was dental information given to patient?: Patient has dentist HPI hyperlipidemia, cervical spondylosis HPI Details Patient comes in today for his follow up visit States that he still has on and off headaches, mostly over the back of the right side of his head He thinks that his recurrent neck pains, which are still bothering him a lot, are contributing to or causing his headaches He has been taking Tizanidine over the past couple of months with some relief but would like something stronger to try, if possible He denies any dizziness Denies any chest pains, no increased SOB No nausea/vomiting, no abdominal pain No change in bowel habits noted He had his follow up labs done last week - to discuss his results [facility] Medical History Smoker Erectile dysfunction Vitamin D deficiency Mixed hyperlipidemia Obesity (BMI 30-39.9) PAC (premature atrial contraction) Migraine Carpal tunnel syndrome on both sides Surgical History History of carpal tunnel surgery History of orchiectomy, unilateral History of appendectomy Family History Father Hypertension Mother Hypertension Diabetes Social History Housing: Apartment Alcohol intake: current Alcohol intake frequency: holidays/special occasions only Patient Tobacco Use Status: Current everyday Tobacco user Tobacco use type: Cigarette e-Cigarette/Vaping Use: Currently Using Second Hand Smoke Exposure: Yes Advance Directives Date on File: 05/28/20 service: No Current occupational status: employed Current occupation: [employer] Cognitive needs: No Hearing needs: No Vision needs: Yes Questionnaire PHQ-9 Over the last 2 weeks, how often have you been bothered by any of the following problems? 1. Little interest or pleasure in doing things: several days 2. Feeling down, depressed, or hopeless: not at all 3. Trouble falling or staying asleep, or sleeping too much: several days 4. Feeling tired or having little energy: several days 5. Poor appetite or overeating: several days 6. Feeling bad about yourself - or that you are a failure or have let yourself or your family down: not at all 7. Trouble concentrating on things, such as reading the newspaper or watching television: not at all 8. Moving or speaking so slowly that other people could have noticed. Or the opposite - being so fidgety or restless that you have been moving around a lot more than usual: not at all 9. Thoughts that you would be better off or of hurting yourself in some way: not at all Total score: 4 Depression Screening Interpretation: Positive Depression Screening Follow-up: Follow-up Visit Requested Depression Screening Done: Yes 89521 - PHQ-9 Billing: Yes Source: Developed by Drs. Asim Amador, Katelyn Aguirre, Maxim Thorne and colleagues, with an educational samantha from [employer]. Thrive Questionnaire Date Thrive assessed: 10/02/24 I am a: Patient What is your living situation today?: I have a steady place to live Within the past 12 months, did the food you bought not last and you didn't have the money to get more?: I choose not to answer this question Within the past 12 months, did you worry whether your food would run out before you got money to buy more?: I choose not to answer this question Do you have trouble paying for medicines?: No Do you have trouble getting transportation to medical appointments?: No Do you have trouble paying your heating and electricity bill?: No Do you have trouble taking care of your child, family member or friend?: No Do you have trouble with day-to-day activities such as bathing, preparing meals, shopping, managing finances, etc.?: No Are you currently unemployed and looking for a job?: No Are you interested in more education?: No Please select the resources that you would like help with: None Currently or been in a relationship where the following occur: No concerns reported THRIVE Score: 0 AUDIT C Alcohol Use Questionnaire (AUDIT-C) 1. How often do you have a drink containing alcohol?: Never 3. How often do you have six or more drinks on one occasion?: Never Total Score: 0 Score Reviewed/Action Taken: Yes HEIDY-7 AMB Questionnaire HEIDY-7 Date HEIDY - 7 assessed: 10/02/24 Feeling nervous, anxious, or on edge: 0 = Not at all Not being able to stop or control worryin = Not at all Worrying too much about different things: 0 = Not at all Trouble relaxin = Not at all Being so restless that it is hard to sit still: 0 = Not at all Becoming easily annoyed or irritable: 1 = Several days Feeling afraid as if something awful might happen: 0 = Not at all Total HEIDY-7 score (0-4 normal; 5-9 mild; 10-14 moderate; 15-21 severe): 1 Source: Developed by Drs. Asim Amador, Katelyn Aguirre, Maxim Thorne and colleagues, with an educational samantha from [employer]. Review of Systems Const Denies chills, Reports difficulty sleeping (at times due to his headaches), Denies fatigue, Denies fever(s) and Reports headache(s) (recurrent - (+) sharp pains over the right side of the occipital area ) ENT Denies dysphagia, Denies dizziness, Denies otalgia, Reports headache(s) (recurrent - (+) sharp pains over the right side of the occipital area ), Reports neck pain (on and off, over the right paraspinal area ), Denies odynophagia and Denies sore throat Card Denies chest pain, Denies palpitations and Denies dyspnea Resp Denies chest congestion, Denies cough and Denies dyspnea GI Denies abdominal pain, Denies constipation, Denies dysphagia, Denies heartburn, Denies diarrhea, Denies nausea, Denies odynophagia and Denies vomiting Reports erectile dysfunction, Denies dysuria and Denies urinary frequency Musc Reports back pain (over the lower back - chronic) and Reports neck pain (on and off, over the right paraspinal area ) Skin/Breast Denies rash Neuro Denies dizziness and Reports headache(s) (recurrent - (+) sharp pains over the right side of the occipital area ) Endo Denies fatigue and Denies palpitations Physical exam (Primary Care) Vital Signs: Last Vital Signs Pulse 72 10/02/24 11:00 BP 130/80 10/02/24 11:00 Pulse Ox 95 10/02/24 11:00 Oxygen Delivery Method Room Air 10/02/24 11:00 BMI result Body Mass Index 32.8 Tobacco/Smoking Status: Tobacco use Status Tobacco use date assessed 10/02/24 10/02/24 11:04 Patient Tobacco Use Status Current everyday Tobacco 10/02/24 11:04 Tobacco use type Cigarette 10/02/24 11:04 e-Cigarette/Vaping Use Currently Using 10/02/24 11:04 PHQ-9: PHQ-9 Score PHQ-9: Total score 4 10/02/24 11:04 Depression Screening Interpretation: Positive Depression Screening Follow-up: Follow-up Visit Requested Thrive Assessment: Date of Thrive Assessment Date Thrive assessed 10/02/24 10/02/24 11:04 Currently or been in a relationship where the following occur: No concerns reported Const General: no acute distress and alert HENMT Ears: TM's normal bilaterally and EAC's normal Throat: Yes posterior oropharynx normal and Yes tonsils normal (no TP congestion) Neck Neck: Yes supple and No lymphadenopathy Thyroid: Thyroid normal Resp Auscultation: clear to auscultation bilaterally, no rales and no wheezes Cardio Rate: regular rate Rhythm: regular rhythm Heart sounds: no murmurs GI Palpation (GI): Soft to palpation and nontender Auscultation: normal bowel sounds General: Yes no CVA tenderness Back/Spine/Pelvis Back: no CVA tenderness Cervical Spine: cervical muscular tenderness (especially on the right side) and Cervical spine tenderness Thoracic/Lumbar Spine: lumbar spinal tenderness (mild) Skin Rashes: no rashes Extrem General: Yes no clubbing, cyanosis or edema Results Reviewed Results Reviewed: Laboratory Tests 09/23/24 09/23/24 07:17 07:20 WBC 4.9 Hgb 14.2 Hct 41.8 L Plt Count 244 Sodium 143 Potassium 4.4 Creatinine 1.06 Estimated GFR > 60 Fasting Glucose 100 H Calcium 9.1 AST 38 H ALT 69 H Triglycerides 153 H Cholesterol 188 LDL Cholesterol, Calc 128 H HDL Cholesterol 30 L 25-OH Vitamin D Total 30.9 TSH 4.12 H Free T4 0.90 Ur Specific [place] 1.015 Urine Protein Negative Urine Glucose (UA) Negative Urine Blood Negative Urine Nitrite Negative Ur Leukocyte Esterase Negative Coding Level of Care Code Est Pt Level 4 (00485) Diagnoses Mixed hyperlipidemia E78.2 Migraine without status migrainosus, not intractable, unspecified migraine type G43.909 Migraine type: unspecified Status migrainosus presence: without status migrainosus Intractability: not intractable Cervical spondylosis M47.812 Vitamin D deficiency E55.9 Erectile dysfunction, unspecified erectile dysfunction type N52.9 Erectile dysfunction type: unspecified Carpal tunnel syndrome on both sides G56.03 Smoker F17.200 Obesity (BMI 30-39.9) E66.9 Additional Codes PHQ-9 - 11802 - PHQ-9 Billing: Yes ([id number]) Assessment & Plan Assessment & Plan (1) Mixed hyperlipidemia: Code(s): E78.2 - Mixed hyperlipidemia Category: Medical Plan: Results of his labs done last week reviewed and discussed with patient - he is advised that his cholesterol levels are again mostly unchanged from previous and need to improve further Reinforced low cholesterol diet Continue Fenofibrate 160 mg QD and Ezetimibe 10 mg QD for now Will recheck his labs and fasting lipids in 4 months for follow up (2) Migraine: Code(s): G43.909 - Migraine, unspecified, not intractable, without status migrainosus Category: Medical Qualifiers: Migraine type: unspecified Status migrainosus presence: without status migrainosus Intractability: not intractable Qualified Code(s): G43.909 - Migraine, unspecified, not intractable, without status migrainosus Plan: Reinforced avoidance of migraine triggers Continue Fioricet PRN and Sumatriptan 50 mg PRN; Topiramate was increased to 50 mg Q HS by neurology previously but he stopped the Rx as he felt that it was causing him to experience increased pain over the back of his neck as well as symptoms of ED Continue Ubrelvy 50 mg PRN for now Follow up with neurology as scheduled for further management/recommendations (3) Cervical spondylosis: Code(s): M47.812 - Spondylosis without myelopathy or radiculopathy, cervical region Category: Medical Plan: Cervical spine x-rays done in April 2023 revealed (+) mild multilevel cervical spondylosis He was previously referred to physical therapy for his neck - states that PT helped somewhat Have discussed with patient that there is a possibility that his recurrent right neck pains and pains over the back of his head may also be related to his cervical spondylosis and may not necessarily have anything to do with his migraine headaches He was started on Tizanidine 4 mg TID PRN a few months ago with some relief but patient is requesting for something stronger - will try starting him instead on Methocarbamol 500 mg TID PRN (4) Vitamin D deficiency: Code(s): E55.9 - Vitamin D deficiency, unspecified Category: Medical Plan: Continue Vitamin D3 1000 units QD (5) Erectile dysfunction: Code(s): N52.9 - Male erectile dysfunction, unspecified Category: Medical Qualifiers: Erectile dysfunction type: unspecified Qualified Code(s): N52.9 - Male erectile dysfunction, unspecified Plan: Continue Sildenafil 50 mg PRN He is reminded to monitor his BP regularly and reminded NOT to take his ED Rx if his BP is high Serum testosterone level checked last year came out normal (6) Carpal tunnel syndrome on both sides: Comment: S/P carpal tunnel release (surgery) of the left wrist on 04/27/20 and of the right wrist on 05/28/20 with significant improvement of symptoms Code(s): G56.03 - Carpal tunnel syndrome, bilateral upper limbs Category: Medical Plan: Follow up with orthopedics as scheduled or as needed (7) Smoker: Code(s): F17.200 - Nicotine dependence, unspecified, uncomplicated Category: Social Hx Plan: Patient is counseled again on complete smoking cessation States that he currently uses vapes more than actual cigarettes but still does both daily; notes that his vapes contain at least 6% nicotine He was tried on Nicotine patches before but states that it did not really help him quit (8) Obesity (BMI 30-39.9): Code(s): E66.9 - Obesity, unspecified Category: Medical Plan: Reinforced diet/exercise as tolerated/lose weight Plan Follow up in 4 months Orders: Orders Comprehensive Parks. Panel Fast 4 Months E78.00 - Pure hypercholesterolemia, unspecified Complete Blood Count Auto Diff 4 Months D64.9 - Anemia, unspecified Lipid Panel 4 Months E78.00 - Pure hypercholesterolemia, unspecified UA CC w/rflx Micro + Cult 4 Months R30.0 - Dysuria Vitamin D 25-OH Total 4 Months E55.9 - Vitamin D deficiency, unspecified Medications: New methocarbamol 500 mg PO TID PRN 90 tabs 1RF neck pain 30 days
== END 2024-10-02 11:26 | disposition home or self-care (01) ==
LOC: HO.HMCH 10:59
PROVIDERS: PCP Internal Medicine; Visit Provider Internal Medicine
DX: E78.2 Mixed hyperlipidemia (principal); G43.909 Migraine, unspecified, not intractable, without status migrainosus; E66.9 Obesity, unspecified; Z68.32 Body mass index [BMI] 32.0-32.9, adult; M47.812 Spondylosis without myelopathy or radiculopathy, cervical region; E55.9 Vitamin D deficiency, unspecified; N52.9 Male erectile dysfunction, unspecified; G56.03 Carpal tunnel syndrome, bilateral upper limbs; F17.200 Nicotine dependence, unspecified, uncomplicated

== ENCOUNTER → 2024-10-02 10:58 | Outpatient (BNVA) | payer BC, SELFPAY | PROVIDERS: PCP Internal Medicine; Visit Provider Internal Medicine | DX: E78.2 Mixed hyperlipidemia (principal); G43.909 Migraine, unspecified, not intractable, without status migrainosus; M47.812 Spondylosis without myelopathy or radiculopathy, cervical region; E55.9 Vitamin D deficiency, unspecified; N52.9 Male erectile dysfunction, unspecified; G56.03 Carpal tunnel syndrome, bilateral upper limbs; E66.9 Obesity, unspecified; Z68.32 Body mass index [BMI] 32.0-32.9, adult; F17.210 Nicotine dependence, cigarettes, uncomplicated; Z13.31 Encounter for screening for depression; Z13.39 Encounter for screening examination for other mental health and behavioral disorders | CPT/HCPCS: 96127 ==

== ENCOUNTER 2025-01-31 08:36 | Outpatient (REF) | payer BC, SELFPAY ==
[2025-01-31 08:47] LABS: MANUAL DIFF FLAG NO
[2025-01-31 09:24] LABS: Hematocrit 42.1 % (42.0-52.0); Hemoglobin 14.4 g/dl (14.0-18.0); Imm Gran Abs Auto 0.02 X10*3/uL (0.00-0.03); Imm Gran Pct Auto 0.4 % (0.0-0.4); Lymphocytes Absolute Auto 1.6 X10*3/uL (1.2-4.9); Mean Corpuscular HGB Conc 34.2 g/dl (31.0-36.0); Mean Corpuscular Hemoglobin 29.9 pg (27.0-33.0); Mean Corpuscular Volume 87.3 fL (80.0-98.0); NRBC Abs Auto 0.000 X10*3/uL (0.0-0.012); NRBC Pct Auto 0.0 /100WBC (0.0-0.2); Platelet Count 252 X10*3/uL (160-400); Red Blood Count 4.82 X10*6/uL (4.60-5.80); White Blood Count 5.2 X10*3/uL (4.8-10.8)
[2025-01-31 10:01] LABS: Alanine Aminotransferase 54 U/L (0-40); Albumin Level 4.6 g/dL (3.5-5.0); Alkaline Phosphatase 65 U/L (39-117); Anion Gap 12 (12-20); Aspartate Amino Transferase 31 U/L (5-37); Blood Urea Nitrogen 13 mg/dL (9-16); Calcium 9.1 mg/dL (8.4-10.2); Carbon Dioxide 26 mmol/L (22-29); Chloride 109 mmol/L (96-108); Cholesterol 213 mg/dL (<200); Estimated Glomerular Filt Rate > 60; HDL Cholesterol 30 mg/dL (>40); Potassium 3.8 mmol/L (3.3-5.1); Sodium 143 mmol/L (135-145); Total Protein 7.4 g/dL (6.5-8.0); Triglycerides 253 mg/dL (<150)
[2025-01-31 10:49] LABS: Appearance Urine Clear; Glucose Urine UA Negative (Negative); PH 5.5 (5.0-9.0); Specific Gravity - Urine >= 1.030 (1.005-1.025)
== END 2025-01-31 08:37 | disposition home or self-care (01) ==
LOC: HO.LAB 08:36
PROVIDERS: PCP Internal Medicine; Visit Provider Internal Medicine
DX: R30.0 Dysuria (principal); E78.00 Pure hypercholesterolemia, unspecified; D64.9 Anemia, unspecified; E55.9 Vitamin D deficiency, unspecified
CPT/HCPCS: 36415; 80053; 80061; 81003; 82306; 85025

== ENCOUNTER 2025-02-05 09:51 | Outpatient (AMB) | payer BC, SELFPAY ==
[2025-02-05 10:01] VITALS: BP 120/74; PULSE 74; O2SAT 96; BMI 33.6
--- NOTE | 2025-02-05 10:01 | MHC.PC.OV ---
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 Required: No Accompanied by: Self / Same As Patient Allergies latex (LATEX) Allergy (Unknown, Verified 02/05/25 10:41) RASH topiramate Adverse Reaction (Intermediate, Verified 02/05/25 10:41) increased neck pain; ED Medication List - Last Reconciled 02/05/25 by Jimmy Serrano MD arm brace (Wrist Brace Large) As directed - LEFT WRIST arm brace (Wrist Brace Large) As directed - RIGHT WRIST cholecalciferol (vitamin D3) 25 mcg PO DAILY ezetimibe 10 mg PO DAILY 90 days fenofibrate 160 mg PO DAILY 90 days ibuprofen (Advil) 200 mg PO Q6H PRN methocarbamol 500 mg PO TID PRN 30 days sildenafil 50 mg PO DAILY PRN 30 days tizanidine 4 mg PO Q8H PRN 30 days Tobacco use date assessed: 10/02/24 Dental Screening Dental Screen Date: 02/05/25 Did you have a dental visit in the last 12 months?: Yes Did you have a dental problem in the last 6 months where you did not have access to dental care?: No Was dental information given to patient?: Patient has dentist HPI Follow Up HPI Details Patient comes in today for his follow up visit States that he still has recurrent neck pains, which in turn are contributing to his sharp right-sided headaches often; he denies any dizziness Notes that Methocarbamol seems to be helping better than Tizanidine with his neck pains but not by much He denies any chest pains, no increased SOB No nausea/vomiting, no abdominal pain No change in bowel habits noted He had his follow up labs done last week - to discuss his results [facility] Medical History Smoker Erectile dysfunction Vitamin D deficiency Mixed hyperlipidemia Obesity (BMI 30-39.9) PAC (premature atrial contraction) Migraine Carpal tunnel syndrome on both sides Surgical History History of carpal tunnel surgery History of orchiectomy, unilateral History of appendectomy Family History Father Hypertension Mother Hypertension Diabetes Social History Housing: Apartment Alcohol intake: current Alcohol intake frequency: holidays/special occasions only Patient Tobacco Use Status: Current everyday Tobacco user Tobacco use type: Cigarette e-Cigarette/Vaping Use: Currently Using Second Hand Smoke Exposure: Yes Advance Directives Date on File: 05/28/20 service: No Current occupational status: employed 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 1. Little interest or pleasure in doing things: several days 2. Feeling down, depressed, or hopeless: not at all 3. Trouble falling or staying asleep, or sleeping too much: several days 4. Feeling tired or having little energy: several days 5. Poor appetite or overeating: several days 6. Feeling bad about yourself - or that you are a failure or have let yourself or your family down: not at all 7. Trouble concentrating on things, such as reading the newspaper or watching television: not at all 8. Moving or speaking so slowly that other people could have noticed. Or the opposite - being so fidgety or restless that you have been moving around a lot more than usual: not at all 9. Thoughts that you would be better off or of hurting yourself in some way: not at all Total score: 4 Depression Screening Interpretation: Positive Depression Screening Follow-up: Follow-up Visit Requested Depression Screening Done: Yes 97365 - PHQ-9 Billing: Yes Source: Developed by Drs. Asim Amador, Katelyn Aguirre, Maxim Thorne and colleagues, with an educational samantha from [employer]. Thrive Questionnaire Date Thrive assessed: 02/05/25 I am a: Patient What is your living situation today?: I have a steady place to live Within the past 12 months, did the food you bought not last and you didn't have the money to get more?: I choose not to answer this question Within the past 12 months, did you worry whether your food would run out before you got money to buy more?: I choose not to answer this question Do you have trouble paying for medicines?: No Do you have trouble getting transportation to medical appointments?: No Do you have trouble paying your heating and electricity bill?: No Do you have trouble taking care of your child, family member or friend?: No Do you have trouble with day-to-day activities such as bathing, preparing meals, shopping, managing finances, etc.?: No Are you currently unemployed and looking for a job?: No Are you interested in more education?: No Please select the resources that you would like help with: None Currently or been in a relationship where the following occur: No concerns reported THRIVE Score: 0 AUDIT C Alcohol Use Questionnaire (AUDIT-C) 1. How often do you have a drink containing alcohol?: Never 3. How often do you have six or more drinks on one occasion?: Never Total Score: 0 Score Reviewed/Action Taken: Yes HEIDY-7 AMB Questionnaire HEIDY-7 Date HEIDY - 7 assessed: 02/05/25 Feeling nervous, anxious, or on edge: 0 = Not at all Not being able to stop or control worryin = Not at all Worrying too much about different things: 0 = Not at all Trouble relaxin = Not at all Being so restless that it is hard to sit still: 0 = Not at all Becoming easily annoyed or irritable: 1 = Several days Feeling afraid as if something awful might happen: 0 = Not at all Total HEIDY-7 score (0-4 normal; 5-9 mild; 10-14 moderate; 15-21 severe): 1 Source: Developed by Drs. Asim Amador, Katelyn Aguirre, Maxim Thorne and colleagues, with an educational samantha from [employer]. Review of Systems Const Denies chills, Reports difficulty sleeping (at times due to his recurrent sharp right-sided headaches), Denies fatigue, Denies fever(s) and Reports headache(s) (recurrent - (+) sharp pains over the right side of the occipital area ) Eyes Denies blurry vision ENT Denies dysphagia, Denies dizziness, Denies otalgia, Reports headache(s) (recurrent - (+) sharp pains over the right side of the occipital area ), Reports neck pain (on and off, over the right paraspinal area ), Denies odynophagia and Denies sore throat Card Denies chest pain, Denies palpitations and Denies dyspnea Resp Denies chest congestion, Denies cough and Denies dyspnea GI Denies abdominal pain, Denies constipation, Denies dysphagia, Denies heartburn, Denies diarrhea, Denies nausea, Denies odynophagia and Denies vomiting Denies difficulty urinating, Reports erectile dysfunction, Denies dysuria and Denies urinary frequency Musc Reports back pain (over the lower back - chronic) and Reports neck pain (on and off, over the right paraspinal area ) Skin/Breast Denies rash Neuro Denies dizziness and Reports headache(s) (recurrent - (+) sharp pains over the right side of the occipital area ) Endo Denies fatigue and Denies palpitations Physical exam (Primary Care) Vital Signs: Last Vital Signs Pulse 74 02/05/25 10:01 BP 120/74 02/05/25 10:01 Pulse Ox 96 02/05/25 10:01 Oxygen Delivery Method Room Air 02/05/25 10:01 BMI result Body Mass Index 33.6 Tobacco/Smoking Status: Tobacco use Status Tobacco use date assessed 10/02/24 02/05/25 10:02 Patient Tobacco Use Status Current everyday Tobacco 02/05/25 10:02 Tobacco use type Cigarette 02/05/25 10:02 e-Cigarette/Vaping Use Currently Using 02/05/25 10:02 PHQ-9: PHQ-9 Score PHQ-9: Total score 4 02/05/25 10:18 Depression Screening Interpretation: Positive Depression Screening Follow-up: Follow-up Visit Requested Thrive Assessment: Date of Thrive Assessment Date Thrive assessed 02/05/25 02/05/25 10:18 Currently or been in a relationship where the following occur: No concerns reported Const General: no acute distress and alert HENMT Ears: TM's normal bilaterally and EAC's normal Throat: Yes posterior oropharynx normal and Yes tonsils normal (no TP congestion) Neck Neck: Yes supple and No lymphadenopathy Thyroid: Thyroid normal Resp Auscultation: clear to auscultation bilaterally, no rales and no wheezes Cardio Rate: regular rate Rhythm: regular rhythm Heart sounds: no murmurs GI Palpation (GI): Soft to palpation and nontender Auscultation: normal bowel sounds General: Yes no CVA tenderness Back/Spine/Pelvis Back: no CVA tenderness Cervical Spine: cervical muscular tenderness (especially on the right side) and Cervical spine tenderness Thoracic/Lumbar Spine: lumbar spinal tenderness (mild) Skin Rashes: no rashes Extrem General: Yes no clubbing, cyanosis or edema Results Reviewed Results Reviewed: Laboratory Tests 01/31/25 01/31/25 08:43 08:46 WBC 5.2 Hgb 14.4 Hct 42.1 Plt Count 252 Sodium 143 Potassium 3.8 Creatinine 1.11 Estimated GFR > 60 Fasting Glucose 101 H Calcium 9.1 AST 31 ALT 54 H Triglycerides 253 H Cholesterol 213 H LDL Cholesterol, Calc 133 H HDL Cholesterol 30 L 25-OH Vitamin D Total 25.2 L Ur Specific [place] >= 1.030 H Urine Protein Trace Urine Glucose (UA) Negative Urine Blood Negative Urine Nitrite Negative Ur Leukocyte Esterase Negative Coding Level of Care Code Est Pt Level 4 (40360) Diagnoses Mixed hyperlipidemia E78.2 Migraine without status migrainosus, not intractable, unspecified migraine type G43.909 Migraine type: unspecified Status migrainosus presence: without status migrainosus Intractability: not intractable Cervical spondylosis M47.812 Vitamin D deficiency E55.9 Erectile dysfunction, unspecified erectile dysfunction type N52.9 Erectile dysfunction type: unspecified Carpal tunnel syndrome on both sides G56.03 Smoker F17.200 Obesity (BMI 30-39.9) E66.9 Additional Codes PHQ-9 - 31417 - PHQ-9 Billing: Yes ([id number]) Assessment & Plan Assessment & Plan (1) Mixed hyperlipidemia: Code(s): E78.2 - Mixed hyperlipidemia Category: Medical Plan: Results of his labs done last week reviewed and discussed with patient - he is cautioned that his cholesterol levels have increased slightly from previous and his numbers are now slightly above the recommended cut-off numbers for high cholesterol levels, with his LDL cholesterol now at 133 mg/dl; his serum triglyceride level has also gone up over 100 points to now at 253 mg/dl Reinforced low cholesterol diet Continue Fenofibrate 160 mg QD and Ezetimibe 10 mg QD for now but if his cholesterol numbers do not improve significantly over the next few months, we will need to reconsider starting him on a statin to help lower his cholesterol numbers better Will recheck his labs and fasting lipids in 4 months for follow up (2) Migraine: Code(s): G43.909 - Migraine, unspecified, not intractable, without status migrainosus Category: Medical Qualifiers: Migraine type: unspecified Status migrainosus presence: without status migrainosus Intractability: not intractable Qualified Code(s): G43.909 - Migraine, unspecified, not intractable, without status migrainosus Plan: Reinforced avoidance of migraine triggers Continue Fioricet PRN and Sumatriptan 50 mg PRN His Topiramate was increased to 50 mg Q HS by neurology previously but he stopped the Rx as he felt that it was causing him to experience increased pain over the back of his neck as well as symptoms of ED Continue Ubrelvy 50 mg PRN for now Follow up with neurology as scheduled for further management/recommendations (3) Cervical spondylosis: Code(s): M47.812 - Spondylosis without myelopathy or radiculopathy, cervical region Category: Medical Plan: Cervical spine x-rays done in April 2023 revealed (+) mild multilevel cervical spondylosis He was previously referred to physical therapy for his neck - states that PT helped somewhat Have discussed with patient that there is a possibility that his recurrent right neck pain and pain over the back of his head may also be related to his cervical spondylosis and may not necessarily have anything to do with his migraine headaches He was started on Tizanidine 4 mg TID PRN a few months ago with some relief but patient requested for something stronger and this was changed over to Methocarbamol 500 mg TID PRN at his last visit (4) Vitamin D deficiency: Code(s): E55.9 - Vitamin D deficiency, unspecified Category: Medical Plan: Continue Vitamin D3 1000 units QD (5) Erectile dysfunction: Code(s): N52.9 - Male erectile dysfunction, unspecified Category: Medical Qualifiers: Erectile dysfunction type: unspecified Qualified Code(s): N52.9 - Male erectile dysfunction, unspecified Plan: Continue Sildenafil 50 mg PRN He is reminded to monitor his BP regularly and reminded NOT to take his ED Rx if his BP is high Serum testosterone level checked last year came out normal (6) Carpal tunnel syndrome on both sides: Comment: S/P carpal tunnel release (surgery) of the left wrist on 04/27/20 and of the right wrist on 05/28/20 with significant improvement of symptoms Code(s): G56.03 - Carpal tunnel syndrome, bilateral upper limbs Category: Medical Plan: Follow up with orthopedics as scheduled or as needed (7) Smoker: Code(s): F17.200 - Nicotine dependence, unspecified, uncomplicated Category: Social Hx Plan: Patient is counseled again on complete smoking cessation States that he currently uses vapes more than actual cigarettes but still does both daily; notes that his vapes contain at least 6% nicotine He was tried on Nicotine patches before but states that it did not really help him quit (8) Obesity (BMI 30-39.9): Code(s): E66.9 - Obesity, unspecified Category: Medical Plan: Reinforced diet/exercise as tolerated/lose weight Plan Follow up in 4 months Orders: Orders Comprehensive [place]. Panel Fast 4 Months E78.00 - Pure hypercholesterolemia, unspecified Lipid Panel 4 Months E78.00 - Pure hypercholesterolemia, unspecified UA CC w/rflx Micro + Cult 4 Months R30.0 - Dysuria Vitamin D 25-OH Total 4 Months E55.9 - Vitamin D deficiency, unspecified Complete Blood Count Auto Diff 4 Months D64.9 - Anemia, unspecified TSH reflex Free T4 4 Months E78.00 - Pure hypercholesterolemia, unspecified
== END 2025-02-05 10:51 | disposition home or self-care (01) ==
LOC: HO.HMCH 09:53
PROVIDERS: PCP Internal Medicine; Visit Provider Internal Medicine
DX: E78.2 Mixed hyperlipidemia (principal); G43.909 Migraine, unspecified, not intractable, without status migrainosus; E66.9 Obesity, unspecified; Z68.33 Body mass index [BMI] 33.0-33.9, adult; M47.812 Spondylosis without myelopathy or radiculopathy, cervical region; E55.9 Vitamin D deficiency, unspecified; N52.9 Male erectile dysfunction, unspecified; G56.03 Carpal tunnel syndrome, bilateral upper limbs; F17.200 Nicotine dependence, unspecified, uncomplicated

== ENCOUNTER → 2025-02-05 09:51 | Outpatient (BNVA) | payer BC, SELFPAY | PROVIDERS: PCP Internal Medicine; Visit Provider Internal Medicine | DX: E78.2 Mixed hyperlipidemia (principal); G43.909 Migraine, unspecified, not intractable, without status migrainosus; M47.812 Spondylosis without myelopathy or radiculopathy, cervical region; E55.9 Vitamin D deficiency, unspecified; N52.9 Male erectile dysfunction, unspecified; G56.03 Carpal tunnel syndrome, bilateral upper limbs; E66.9 Obesity, unspecified; F17.200 Nicotine dependence, unspecified, uncomplicated; Z68.33 Body mass index [BMI] 33.0-33.9, adult | CPT/HCPCS: 96127 ==